=== PATIENT | female | born 1965 | race Asian ===

== ENCOUNTER 2019-10-11 12:48 | Inpatient (IN) | payer OTHER ==
[2019-10-11] MEDS ORDERED: SODIUM CHLORIDE 0.9% 1000 ML 1,000 ML ONE (13:24)
--- NOTE | 2019-10-11 13:31 | Event Note ---
ED Screening Note ED Screening Note: Patient presents for generalized weakness, fatigue, fever, shortness of breath that began a couple days ago She states he has discomfort with taking a deep breath Her only past medical history is a gastric surgery a year ago No sick contacts, no recent travel, no recent surgery, no hormone use This initial assessment/diagnostic orders/clinical plan/treatment(s) is/are subject to change based on patients health status, clinical progression and re- assessment by fellow clinical providers in the ED. Further treatment and workup at subsequent clinical providers discretion. Patient/guardian urged not to elope from the ED as their condition may be serious if not clinically assessed and managed. Initial orders include: Vitals with hypoxia and hypotension Code sepsis initiated Charge nurse Kathya notified, patient is going to room 19 for MD evaluation
[2019-10-11] MEDS ORDERED: SODIUM CHLORIDE 0.9% 1000 ML 1,000 ML IV ONE ×2 (14:07)
[2019-10-11 14:17] LABS: Basophils % (Auto) 0.2 % (0.0-1.8); Hematocrit 45.2 % (30.3-42.9); Lymphocytes % (Auto) 20.1 % (13.4-35.0); Mean Corpuscular HGB Conc 33 % (30-34); Mean Corpuscular Volume 85 fl (79-97); Monocytes # (Auto) 0.5 K/mm3 (0.0-0.8); Monocytes % (Auto) 10.2 % (0.0-7.3); Platelet Count 156 K/mm3 (140-440); Red Blood Count 5.35 M/mm3 (3.65-5.03); Red Cell Distribution Width 14.4 % (13.2-15.2)
--- NOTE | 2019-10-11 14:19 | Emergency Department Report ---
HPI - General Chief Complaint: Pain General Time Seen by Provider: 10/11/19 13:24 - HPI HPI: Room 19 Patient is a 54-year-old female present with a chief complaint of weakness. The patient states for the past week she has felt diffusely weak. Patient states she has lost approximately 10 pounds in 1 week. Patient states she does not eat or drink as much fluid as she should because she feels too weak. Patient admits to dyspnea on exertion for 8 days. Patient denies cough or fever but admits to body aches. Patient denies chest pain or abdominal pain. ED Past Medical Hx - Past Medical History Previous Medical History?: No Hx Hypertension: Yes - Surgical History Past Surgical History?: No - Family History Family history: no significant - Social History Smoking Status: Never Smoker Substance Use Type: None (Denies illicit drug use), Alcohol (Occasional) ED Review of Systems ROS: Stated complaint: BODY PAIN Other details as noted in HPI Constitutional: malaise. denies: fever Eyes: denies: eye pain ENT: denies: throat pain Respiratory: shortness of breath, SOB with exertion Cardiovascular: dyspnea on exertion. denies: chest pain Endocrine: no symptoms reported Gastrointestinal: denies: abdominal pain, nausea, vomiting, diarrhea Genitourinary: denies: dysuria Musculoskeletal: myalgia Neurological: denies: headache Physical Exam - Physical Exam Vital Signs: Vital Signs 10/11/19 13:11 Temperature 97.8 F Pulse Rate 57 L Respiratory 16 Rate Blood Pressure 85/50 [Right] O2 Sat by Pulse 90 Oximetry Physical Exam: GENERAL: The patient is well-developed well-nourished female lying on stretcher not appearing to be in acute distress. [] HEENT: Normocephalic. Atraumatic. Extraocular motions are intact. Patient has moist mucous membranes. NECK: Supple. No meningitic signs are noted. Trachea midline CHEST/LUNGS: Clear to auscultation. There is no respiratory distress noted. HEART/CARDIOVASCULAR: Regular. There is no tachycardia. There is no gallop rub or murmur. ABDOMEN: Abdomen is soft, nontender. Patient has normal bowel sounds. There is no abdominal distention. SKIN: There is no rash. There is no edema. There is no diaphoresis. NEURO: The patient is awake, alert, and oriented. The patient is cooperative. The patient has no focal neurologic deficits. The patient has normal speech. Cranial nerves II through XII grossly intact. Moves all extremities well MUSCULOSKELETAL: There is no evidence of acute injury. ED Course Vital Signs 10/11/19 13:11 Temperature 97.8 F Pulse Rate 57 L Respiratory 16 Rate Blood Pressure 85/50 [Right] O2 Sat by Pulse 90 Oximetry ED Medical Decision Making - Lab Data Result diagrams: 10/11/19 Unknown 10/11/19 Unknown Laboratory Tests 10/11/19 10/11/19 10/11/19 14:52 14:52 15:17 WBC RBC Hgb Hct MCV MCH MCHC RDW Plt Count Lymph % (Auto) [place] % (Auto) Eos % (Auto) Baso % (Auto) Lymph # Luna # Eos # Baso # Seg Neutrophils % Seg Neutrophils # ABG pH 7.402 ABG pCO2 38.9 ABG pO2 54.7 L ABG HCO3 23.7 ABG O2 Saturation 91.4 L ABG O2 Content 17.9 ABG Base Excess -0.9 ABG Hemoglobin 14.3 ABG Carboxyhemoglobin 1.5 ABG Methemoglobin 0.8 Oxyhemoglobin 89.4 L FiO2 21 Sodium Potassium Chloride Carbon Dioxide Anion Gap BUN Creatinine Estimated GFR BUN/Creatinine Ratio Glucose Lactic Acid Calcium Magnesium 3.00 H Total Bilirubin AST ALT Alkaline Phosphatase Total Creatine Kinase 288 H CK-MB (CK-2) 1.1 CK-MB (CK-2) Rel Index 0.3 Troponin T < 0.010 NT-Pro-B Natriuret Pep 8.60 Total Protein Albumin Albumin/Globulin Ratio Free T4 0.99 Urine Color Urine Turbidity Urine pH Ur Specific [place] Urine Protein Urine Glucose (UA) Urine Ketones Urine Blood Urine Nitrite Urine Bilirubin Urine Urobilinogen Ur Leukocyte Esterase Urine WBC (Auto) Urine RBC (Auto) U Epithel Cells (Auto) Urine Bacteria (Auto) Urine Mucus 10/11/19 10/11/19 10/11/19 16:33 Unknown Unknown WBC 4.9 RBC 5.35 H Hgb 15.0 H Hct 45.2 H MCV 85 MCH 28 MCHC 33 RDW 14.4 Plt Count 156 Lymph % (Auto) 20.1 Luna % (Auto) 10.2 H Eos % (Auto) 0.0 Baso % (Auto) 0.2 Lymph # 1.0 L Luna # 0.5 Eos # 0.0 Baso # 0.0 Seg Neutrophils % 69.5 Seg Neutrophils # 3.4 ABG pH ABG pCO2 ABG pO2 ABG HCO3 ABG O2 Saturation ABG O2 Content ABG Base Excess ABG Hemoglobin ABG Carboxyhemoglobin ABG Methemoglobin Oxyhemoglobin FiO2 Sodium Potassium Chloride Carbon Dioxide Anion Gap BUN Creatinine Estimated GFR BUN/Creatinine Ratio Glucose Lactic Acid 1.50 Calcium Magnesium Total Bilirubin AST ALT Alkaline Phosphatase Total Creatine Kinase CK-MB (CK-2) CK-MB (CK-2) Rel Index Troponin T NT-Pro-B Natriuret Pep Total Protein Albumin Albumin/Globulin Ratio Free T4 Urine Color [place] Urine Turbidity Cloudy Urine pH 5.0 Ur Specific [place] 1.025 Urine Protein 100 mg/dl Urine Glucose (UA) Neg Urine Ketones 20 Urine Blood Neg Urine Nitrite Neg Urine Bilirubin Neg Urine Urobilinogen < 2.0 Ur Leukocyte Esterase Mod Urine WBC (Auto) 33.0 H Urine RBC (Auto) 4.0 U Epithel Cells (Auto) 1.0 Urine Bacteria (Auto) 1+ Urine Mucus 1+ 10/11/19 10/11/19 Unknown Unknown WBC RBC Hgb Hct MCV MCH MCHC RDW Plt Count Lymph % (Auto) [place] % (Auto) Eos % (Auto) Baso % (Auto) Lymph # [place] # Eos # Baso # Seg Neutrophils % Seg Neutrophils # ABG pH ABG pCO2 ABG pO2 ABG HCO3 ABG O2 Saturation ABG O2 Content ABG Base Excess ABG Hemoglobin ABG Carboxyhemoglobin ABG Methemoglobin Oxyhemoglobin FiO2 Sodium 135 L Potassium 4.3 Chloride 95.0 L Carbon Dioxide 24 Anion Gap 20 BUN 28 H Creatinine 0.9 Estimated GFR > 60 BUN/Creatinine Ratio 31 Glucose 98 Lactic Acid 1.50 Calcium 8.7 Magnesium Total Bilirubin 0.40 AST 60 H ALT 34 Alkaline Phosphatase 51 Total Creatine Kinase CK-MB (CK-2) CK-MB (CK-2) Rel Index Troponin T NT-Pro-B Natriuret Pep Total Protein 7.6 Albumin 3.7 L Albumin/Globulin Ratio 0.9 Free T4 Urine Color Urine Turbidity Urine pH Ur Specific [place] Urine Protein Urine Glucose (UA) Urine Ketones Urine Blood Urine Nitrite Urine Bilirubin Urine Urobilinogen Ur Leukocyte Esterase Urine WBC (Auto) Urine RBC (Auto) U Epithel Cells (Auto) Urine Bacteria (Auto) Urine Mucus - Radiology Data Radiology results: report reviewed (Chest x-ray), image reviewed (Chest x-ray) interpreted by me: Chest [id number] infiltrate [facility] [address] [place] [address] XRay Report Signed Patient: ZOEY DIAZ MR#: [id number] : 1965 Acct:[id number] Age/Sex: 54 / F ADM Date: 10/11/19 Loc: ED Attending Dr: Ordering Physician: SYLVESTER NAVARRETE Date of Service: 10/11/19 Procedure(s): XR chest 1V ap Accession Number(s): [id number] cc: SYLVESTER NAVARRETE Fluoro Time In Minutes: CHEST 1 VIEW 10/11/2019 1:17 PM INDICATION / CLINICAL INFORMATION: SOB. COMPARISON: None available. FINDINGS: SUPPORT DEVICES: None. HEART / MEDIASTINUM: No significant abnormality. LUNGS / PLEURA: Patchy bilateral airspace consolidation, right greater than left characteristic for bilateral bronchopneumonia No pneumothorax. ADDITIONAL FINDINGS: No significant additional findings. IMPRESSION: 1. Bilateral bronchopneumonia. Consider Covid testing Signer Name: Ottoniel Cisneros MD Signed: 10/11/2019 2:25 PM Workstation Name: [id number] Transcribed By: TL Dictated By: Ottoniel Cisneros MD Electronically Authenticated By: Ottoniel Cisneros MD Signed Date/Time: 10/11/191424 DD/ TD/TT: - Differential Diagnosis Pneumonia, COVID-19, CHF, symptomatic anemia Critical care attestation.: If time is entered above; I have spent that time in minutes in the direct care of this critically ill patient, excluding procedure time. ED Disposition Clinical Impression: Bilateral pneumonia, Hypoxia, Suspected COVID-19 virus infection Disposition: OP ADMIT IP TO THIS HOSP Is pt being admited?: Yes Does the pt Need Aspirin: No Condition: Fair Instructions: Bacterial Pneumonia (ED) Time of Disposition: 17:46 (Hospitalist paged (Dr. Duarte))
[2019-10-11 14:28] LABS: Alanine Aminotransferase 34 units/L (7-56); Albumin 3.7 g/dL (3.9-5); BUN/Creatinine Ratio 31; Blood Urea Nitrogen 28 mg/dL (7-17); Calcium 8.7 mg/dL (8.4-10.2); Hemolysis Index 3
--- NOTE | 2019-10-11 14:29 | XRay Report ---
CHEST 1 VIEW 10/11/2019 1:17 PM INDICATION / CLINICAL INFORMATION: SOB. COMPARISON: None available. FINDINGS: SUPPORT DEVICES: None. HEART / MEDIASTINUM: No significant abnormality. LUNGS / PLEURA: Patchy bilateral airspace consolidation, right greater than left characteristic for b ilateral bronchopneumonia No pneumothorax. ADDITIONAL FINDINGS: No significant additional findings. IMPRESSION: 1. Bilateral bronchopneumonia. Consider Covid testing Signer Name: Ottoniel Cisneros MD Signed: 10/11/2019 2:25 PM Workstation Name: [id number]
[2019-10-11 15:29] LABS: ABG Base Excess -0.9 mmol/L (-2.0-3.0); ABG HCO3 23.7 mmol/L (20.0-26.0); ABG Methemoglobin 0.8 % (0.0-1.5); ABG Oxygen Saturation 91.4 % (95.0-99.0); ABG PCO2 38.9 mm Hg; ABG PH 7.402 pH Units (7.350-7.450); ABG PO2 54.7 mm Hg (80.0-90.0)
[2019-10-11 15:31] LABS: Creatine Kinase MB 1.1 ng/mL (0.0-4.0)
[2019-10-11 15:44] LABS: Free T4 (Free Thyroxine) 0.99 ng/dL (0.76-1.46)
[2019-10-11 16:07] LABS: Bacteria,Urine 1+ /HPF (Negative); Bilirubin,Urine NEG (Negative); Blood,Urine NEG (Negative); Color,Urine Amber (Yellow); Mucus,Urine 1+ /HPF; Urobilinogen,Urine < 2.0 mg/dL (<2.0)
[2019-10-11] MEDS ORDERED: AZITHROMYCIN 500 MG in SODIUM CHLORIDE 0.9% 250ML 250 ML IV ONE (17:43)
[2019-10-11] MEDS ORDERED: cefTRIAXone/NS 2 GM/100 ML 2 GM/100 ML BAG IV ONE (17:43)
--- NOTE | 2019-10-11 17:48 | History and Physical Report ---
History of Present Illness Chief complaint: I have been feeling weak for the past few days History of present illness: 54 YO Female with HTN, Obesity presents to ED for evaluation. Patient states that she has experienced generalized weakness over the past week, as well as malaise, diminished oral intake, loss of sensation of taste, loss of sensation of smell, subjective fever, shortness of breath, dyspnea on exertion, decreased exercise tolerance, body aches, as well as fatigue. EMS was notified and upon arrival the patient was found to be in distress and subsequently transported to [facility] for further care and evaluation of the aforementioned symptoms. The patient was seen and evaluated in the emergency department. Lab and imaging studies reviewed. The patient was found to have pulse oximetry of 87% with exertion which is consistent with acute hypoxemic respiratory failure, as well as a chest x-ray which revealed bilateral pneumonia. Patient was also found to have evidence of a urinary tract infection on urinalysis. Patient admitted to medical floor due to increased risk of pulmonary decompensation. Patient initiated on COVID-19 protocol. Patient denies chills, chest pain, trauma, hemoptysis, prolonged travel/immobility, unilateral leg swelling, individual/family history of DVT/PE/bleeding/blood clotting disorders, recent ill contacts, or known exposure to COVID-19. No prior admission for review. No medication listed at the time of my admission for reconciliation. Past History Past Medical History: hypertension, other (See HPI) Past Surgical History: No surgical history, Other (Reviewed) Social history: single. denies: smoking, alcohol abuse, prescription drug abuse Family history: hypertension Medications and Allergies Allergies Allergy/AdvReac Type Severity Reaction Status Date / Time No Known Allergies Allergy Unverified 10/11/19 14:11 Active Meds: Active Medications Azithromycin 500 mg/ Sodium (Chloride) 250 mls @ 250 mls/hr IV ONCE ONE; Protocol Stop: 10/11/19 18:42 Ceftriaxone Sodium (Rocephin/Ns 2 Gm/100 Ml) 2 gm in 100 mls @ 200 mls/hr IV ONCE ONE; Protocol Stop: 10/11/19 18:12 Review of Systems Constitutional: fever, fatigue, weakness, malaise, lethargy Ears, nose, mouth and throat: no ear pain, no ear discharge, no tinnitis, no decreased hearing, no nose pain Breasts: no change in shape, no swelling Cardiovascular: no chest pain, no orthopnea, no palpitations, no edema Respiratory: cough, shortness of breath, no cough with sputum, no excessive sputum Gastrointestinal: no nausea, no vomiting, no diarrhea, no constipation Genitourinary Female: no pelvic pain, no flank pain Rectal: no pain, no incontinence, no bleeding Musculoskeletal: no neck stiffness, no neck pain, no shooting arm pain, no arm numbness/tingling, no low back pain Integumentary: no rash, no pruritis, no redness, no sores, no wounds Neurological: no transient paralysis, no paralysis, no weakness, no numbness, no tingling, no syncope Psychiatric: no anxiety, no change in sleep habits, no hypersomnia Endocrine: no cold intolerance, no heat intolerance, no excessive thirst, no polydipsia, no excessive sweating Hematologic/Lymphatic: no easy bruising, no easy bleeding, no lymphadenopathy, no lymphedema Allergic/Immunologic: no urticaria, no allergic rhinitis, no anaphylaxis Exam - Constitutional Vitals: Temp Pulse Resp BP Pulse Ox 97.8 F 79 33 H 120/84 95 10/11/19 13:11 10/11/19 16:45 10/11/19 16:45 10/11/19 16:45 10/11/19 16:45 General appearance: Present: mild distress, obese - EENT Eyes: Present: PERRL ENT: hearing intact, clear oral mucosa - Neck Neck: Present: supple, normal ROM - Respiratory Respiratory effort: labored Respiratory: bilateral: diminished, rhonchi - Cardiovascular Heart Sounds: Present: S1 & S2. Absent: rub, click - Extremities Extremities: pulses symmetrical, No edema Peripheral Pulses: within normal limits - Abdominal General gastrointestinal: Present: soft, non-tender, non-distended, normal bowel sounds Female genitourinary: Present: normal - Integumentary Integumentary: Present: clear, warm, dry - Musculoskeletal Musculoskeletal: gait normal, strength equal bilaterally - Psychiatric Psychiatric: appropriate mood/affect, intact judgment & insight - Neurologic Neurologic: CNII-XII intact, moves all extremities HEART Score - HEART Score Troponin: Troponin T < 0.010 ng/mL (0.00-0.029) 10/11/19 14:52 Results - Labs CBC & Chem 7: 10/11/19 Unknown 10/11/19 Unknown Labs: Abnormal lab results 10/11/19 10/11/19 10/11/19 Range/Units 14:52 15:17 Unknown RBC (3.65-5.03) M/mm3 Hgb (10.1-14.3) gm/dl Hct (30.3-42.9) % [place] % (Auto) (0.0-7.3) % Lymph # (1.2-5.4) K/mm3 ABG pO2 54.7 L (80.0-90.0) mm Hg ABG O2 Saturation 91.4 L (95.0-99.0) % Oxyhemoglobin 89.4 L (95.0-99.0) % Sodium (137-145) mmol/L Chloride (98-107) mmol/L BUN (7-17) mg/dL Magnesium 3.00 H (1.7-2.3) mg/dL AST (5-40) units/L Total Creatine Kinase 288 H (30-135) units/L Albumin (3.9-5) g/dL Urine WBC (Auto) 33.0 H (0.0-6.0) /HPF 10/11/19 10/11/19 Range/Units Unknown Unknown RBC 5.35 H (3.65-5.03) M/mm3 Hgb 15.0 H (10.1-14.3) gm/dl Hct 45.2 H (30.3-42.9) % [place] % (Auto) 10.2 H (0.0-7.3) % Lymph # 1.0 L (1.2-5.4) K/mm3 ABG pO2 (80.0-90.0) mm Hg ABG O2 Saturation (95.0-99.0) % Oxyhemoglobin (95.0-99.0) % Sodium 135 L (137-145) mmol/L Chloride 95.0 L (98-107) mmol/L BUN 28 H (7-17) mg/dL Magnesium (1.7-2.3) mg/dL AST 60 H (5-40) units/L Total Creatine Kinase (30-135) units/L Albumin 3.7 L (3.9-5) g/dL Urine WBC (Auto) (0.0-6.0) /HPF Assessment and Plan - Patient Problems (1) Acute hypoxemic respiratory failure Current Visit: Yes Status: Acute Plan to address problem: Chest x-ray, arterial blood gas, supplemental oxygen, nebulizer therapy, pulse oximetry, noninvasive positive pressure ventilation as clinically indicated, pu lmonary toilet, prone positioning while in bed. (2) Urinary tract infection Current Visit: Yes Status: Acute Qualifiers: Encounter type: initial encounter Plan to address problem: CBC, urinalysis, IV antibiotic therapy. (3) Obesity hypoventilation syndrome Current Visit: Yes Status: Acute Plan to address problem: Supplemental oxygen, pulse oximetry, increased physical activity at discharge. Noninvasive positive pressure ventilation as clinically indicated. (4) Bilateral pneumonia Current Visit: Yes Status: Acute Plan to address problem: Chest x-ray, IV antibiotic therapy, supplemental oxygen, nebulizer therapy, pulse oximetry, noninvasive positive pressure ventilation as clinically indicated. Arterial blood gas reviewed. (5) Suspected COVID-19 virus infection Current Visit: Yes Status: Acute Plan to address problem: COVID-19 protocol: Infectious disease service consulted, IV steroid therapy, coronavirus PCR ordered in the emergency department and is pending at the time of admission, contact precautions, isolation precautions, prone positioning while in bed. (6) DVT prophylaxis Current Visit: Yes Status: Acute Plan to address problem: SCD to bilateral lower extremities, prophylactic heparin.
[2019-10-11] MEDS ORDERED: ACETAMINOPHEN 325 MG TAB PO PRN (17:50)
[2019-10-11] MEDS ORDERED: ONDANSETRON 4 MG/2 ML INJ IV PRN (17:50)
[2019-10-11] MEDS: methylPREDNISolone Sod Succinate 40 MG/1 ML INJ IV SCH (23:22)
[2019-10-11] MEDS: HEPARIN 5,000 UNIT/1 ML VIAL SUB-Q SCH (23:22)
[2019-10-12] MEDS: methylPREDNISolone Sod Succinate 40 MG/1 ML INJ IV SCH ×3 (05:00→21:14)
[2019-10-12 07:05] LABS: Basophils % (Auto) 0.1 % (0.0-1.8); Hematocrit 38.6 % (30.3-42.9); Hemoglobin 12.9 gm/dl (10.1-14.3); Lymphocytes # (Auto) 0.7 K/mm3 (1.2-5.4); Lymphocytes % (Auto) 14.2 % (13.4-35.0); Mean Corpuscular HGB Conc 34 % (30-34); Mean Corpuscular Volume 85 fl (79-97); Monocytes # (Auto) 0.2 K/mm3 (0.0-0.8); Monocytes % (Auto) 3.8 % (0.0-7.3); Platelet Count 162 K/mm3 (140-440); Red Blood Count 4.54 M/mm3 (3.65-5.03); Red Cell Distribution Width 14.5 % (13.2-15.2)
[2019-10-12 07:22] LABS: BUN/Creatinine Ratio 30; Blood Urea Nitrogen 21 mg/dL (7-17); Calcium 8.3 mg/dL (8.4-10.2); Hemolysis Index 1
[2019-10-12] MEDS ORDERED: cefTRIAXone/NS 2 GM/100 ML 2 GM/100 ML BAG IV SCH (10:00)
[2019-10-12] MEDS ORDERED: AZITHROMYCIN 500 MG in SODIUM CHLORIDE 0.9% 250ML 250 ML IV SCH (10:00)
[2019-10-12] MEDS: HEPARIN 5,000 UNIT/1 ML VIAL SUB-Q SCH ×2 (10:08→21:19)
--- NOTE | 2019-10-12 11:26 | Progress Note ---
Assessment and Plan - Patient Problems (1) Acute hypoxemic respiratory failure Current Visit: Yes Status: Acute Plan to address problem: - COVID 19 PCR pending - IV azithromycin and rocephin and decadron - ID consulted - Supportive care to maintain adequate SP02 - Prone to sleep - Activity as tolerated - Pulmonary hygiene (2) Bilateral pneumonia Current Visit: Yes Status: Acute Plan to address problem: - COVID 19 PCR sent - IV azithromycina and rocephin and decadron - ID consulted - Supportive care to maintain adequate SP02 - Prone to sleep - Activity as tolerated - Pulmonary hygiene (3) Obesity hypoventilation syndrome Current Visit: Yes Status: Acute (4) Suspected COVID-19 virus infection Current Visit: Yes Status: Acute Plan to address problem: - COVID 19 PCR pending - IV azithromycin and rocephin and decadron - ID consulted - Trend inflammatory markers - Supportive care to maintain adequate SP02 - Prone to sleep - Activity as tolerated - Pulmonary hygiene (5) Urinary tract infection Current Visit: Yes Status: Acute Qualifiers: Encounter type: initial encounter Plan to address problem: - UA mixed - Urine C/S - IV abx - Monitor CBC (6) DVT prophylaxis Current Visit: Yes Status: Acute Plan to address problem: - Heparin sub q - SCDs while in bed - Ambulation as tolerated Subjective Date of service: 10/12/19 Principal diagnosis: Covid 19 PUI Interval history: No acute events overnight reported by nursing staff or patient. The patient asks if her IVF can be continued because she cannot take much fluid d/t gastric bypass surgery in the past. Objective - Constitutional Vitals: Vital Signs - 12hr 10/11/19 10/12/19 10/12/19 23:45 00:32 03:54 Temperature 101.4 F H 98.7 F Pulse Rate 66 Respiratory 20 Rate Blood Pressure 126/81 120/77 O2 Sat by Pulse Oximetry 10/12/19 05:35 Temperature 98.6 F Pulse Rate 73 Respiratory 20 Rate Blood Pressure 127/81 O2 Sat by Pulse 97 Oximetry General appearance: Present: no acute distress - EENT Eyes: PERRL, EOM intact ENT: hearing intact - Neck Neck: normal ROM - Respiratory Respiratory effort: normal - Cardiovascular Rhythm: regular Extremities: pulses intact, pulses symmetrical, No edema - Gastrointestinal General gastrointestinal: Present: soft, non-tender - Integumentary Integumentary: clear, warm, dry - Musculoskeletal Musculoskeletal: strength equal bilaterally - Neurologic Neurologic: CNII-XII intact, moves all extremities - Psychiatric Psychiatric: appropriate mood/affect - Allied health notes Allied health notes reviewed: nursing - Labs CBC & Chem 7: 10/12/19 05:16 10/12/19 05:16 Labs: Abnormal lab results 10/11/19 10/11/19 10/11/19 Range/Units 14:52 15:17 18:17 RBC (3.65-5.03) M/mm3 Hgb (10.1-14.3) gm/dl Hct (30.3-42.9) % [place] % (Auto) (0.0-7.3) % Lymph # (1.2-5.4) K/mm3 Seg Neutrophils % (40.0-70.0) % D-Dimer 438.29 H (0-234) ng/mlDDU ABG pO2 54.7 L (80.0-90.0) mm Hg ABG O2 Saturation 91.4 L (95.0-99.0) % Oxyhemoglobin 89.4 L (95.0-99.0) % Sodium (137-145) mmol/L Potassium (3.6-5.0) mmol/L Chloride (98-107) mmol/L BUN (7-17) mg/dL Glucose (65-100) mg/dL Calcium (8.4-10.2) mg/dL Magnesium 3.00 H (1.7-2.3) mg/dL Ferritin (13.0-400.0) ng/mL AST (5-40) units/L Lactate Dehydrogenase (91-180) units/L Total Creatine Kinase 288 H (30-135) units/L Albumin (3.9-5) g/dL Urine WBC (Auto) (0.0-6.0) /HPF 10/11/19 10/11/19 10/11/19 Range/Units 18:17 18:17 Unknown RBC (3.65-5.03) M/mm3 Hgb (10.1-14.3) gm/dl Hct (30.3-42.9) % [place] % (Auto) (0.0-7.3) % Lymph # (1.2-5.4) K/mm3 Seg Neutrophils % (40.0-70.0) % D-Dimer (0-234) ng/mlDDU ABG pO2 (80.0-90.0) mm Hg ABG O2 Saturation (95.0-99.0) % Oxyhemoglobin (95.0-99.0) % Sodium (137-145) mmol/L Potassium (3.6-5.0) mmol/L Chloride (98-107) mmol/L BUN (7-17) mg/dL Glucose (65-100) mg/dL Calcium (8.4-10.2) mg/dL Magnesium (1.7-2.3) mg/dL Ferritin 719.2 H (13.0-400.0) ng/mL AST (5-40) units/L Lactate Dehydrogenase 399 H (91-180) units/L Total Creatine Kinase (30-135) units/L Albumin (3.9-5) g/dL Urine WBC (Auto) 33.0 H (0.0-6.0) /HPF 10/11/19 10/11/19 10/12/19 Range/Units Unknown Unknown 05:16 RBC 5.35 H (3.65-5.03) M/mm3 Hgb 15.0 H (10.1-14.3) gm/dl Hct 45.2 H (30.3-42.9) % [place] % (Auto) 10.2 H (0.0-7.3) % Lymph # 1.0 L 0.7 L (1.2-5.4) K/mm3 Seg Neutrophils % 81.9 H (40.0-70.0) % D-Dimer (0-234) ng/mlDDU ABG pO2 (80.0-90.0) mm Hg ABG O2 Saturation (95.0-99.0) % Oxyhemoglobin (95.0-99.0) % Sodium 135 L (137-145) mmol/L Potassium (3.6-5.0) mmol/L Chloride 95.0 L (98-107) mmol/L BUN 28 H (7-17) mg/dL Glucose (65-100) mg/dL Calcium (8.4-10.2) mg/dL Magnesium (1.7-2.3) mg/dL Ferritin (13.0-400.0) ng/mL AST 60 H (5-40) units/L Lactate Dehydrogenase (91-180) units/L Total Creatine Kinase (30-135) units/L Albumin 3.7 L (3.9-5) g/dL Urine WBC (Auto) (0.0-6.0) /HPF 10/12/19 Range/Units 05:16 RBC (3.65-5.03) M/mm3 Hgb (10.1-14.3) gm/dl Hct (30.3-42.9) % [place] % (Auto) (0.0-7.3) % Lymph # (1.2-5.4) K/mm3 Seg Neutrophils % (40.0-70.0) % D-Dimer (0-234) ng/mlDDU ABG pO2 (80.0-90.0) mm Hg ABG O2 Saturation (95.0-99.0) % Oxyhemoglobin (95.0-99.0) % Sodium (137-145) mmol/L Potassium 5.1 H (3.6-5.0) mmol/L Chloride (98-107) mmol/L BUN 21 H (7-17) mg/dL Glucose 102 H (65-100) mg/dL Calcium 8.3 L (8.4-10.2) mg/dL Magnesium (1.7-2.3) mg/dL Ferritin (13.0-400.0) ng/mL AST (5-40) units/L Lactate Dehydrogenase (91-180) units/L Total Creatine Kinase (30-135) units/L Albumin (3.9-5) g/dL Urine WBC (Auto) (0.0-6.0) /HPF HEART Score - HEART Score Troponin: Troponin T < 0.010 ng/mL (0.00-0.029) 10/11/19 14:52
--- NOTE | 2019-10-12 12:21 | Progress Note ---
Assessment and Plan - Patient Problems (1) Acute hypoxemic respiratory failure Current Visit: Yes Status: Acute Plan to address problem: Chest x-ray, supplemental oxygen, nebulizer therapy, pulse oximetry, noninvasive positive pressure ventilation as clinically indicated, pulmonary toilet, prone positioning while in bed. (2) Urinary tract infection Current Visit: Yes Status: Acute Qualifiers: Encounter type: initial encounter Plan to address problem: CBC, urinalysis, IV antibiotic therapy. (3) Obesity hypoventilation syndrome Current Visit: Yes Status: Acute Plan to address problem: Supplemental oxygen, pulse oximetry, increased physical activity at discharge. Noninvasive positive pressure ventilation as clinically indicated. (4) Bilateral pneumonia Current Visit: Yes Status: Acute Plan to address problem: Chest x-ray, IV antibiotic therapy, supplemental oxygen, nebulizer therapy, pulse oximetry, noninvasive positive pressure ventilation as clinically indicated. Arterial blood gas reviewed. (5) Suspected COVID-19 virus infection Current Visit: Yes Status: Acute Plan to address problem: COVID-19 protocol: Infectious disease service consulted, IV steroid therapy, coronavirus PCR ordered and is pending at the time of admission, contact precautions, isolation precautions, prone positioning while in bed. (6) DVT prophylaxis Current Visit: Yes Status: Acute Plan to address problem: SCD to bilateral lower extremities, prophylactic heparin. History Interval history: 54 YO Female HD #2 with COVID 19 PUI, Pneumonia, Acute Respiratory Failure, Obesity Hypoventilation Syndrome, GERD, UTI. Patient is awaiting COVID-19 PCR. Patient states that her breathing is mildly improved today. However patient does continue to acknowledge shortness of breath at rest and with exertion. No reported nursing events overnight. Hospitalist Physical - Constitutional Vitals: Temp Pulse Resp BP Pulse Ox 98.6 F 73 20 127/81 97 10/12/19 05:35 10/12/19 05:35 10/12/19 05:35 10/12/19 05:35 10/12/19 05:35 General appearance: Present: mild distress, obese - EENT Eyes: Present: PERRL, EOM intact ENT: hearing intact - Neck Neck: Present: supple - Respiratory Respiratory effort: labored Respiratory: bilateral: diminished - Cardiovascular Rhythm: regular Heart Sounds: Present: S1 & S2 - Extremities Extremities: no ischemia Peripheral Pulses: within normal limits - Abdominal General gastrointestinal: soft, non-tender, non-distended - Integumentary Integumentary: Present: clear, dry - Psychiatric Psychiatric: appropriate mood/affect, cooperative - Neurologic Neurologic: CNII-XII intact HEART Score - HEART Score Troponin: Troponin T < 0.010 ng/mL (0.00-0.029) 10/11/19 14:52 Results - Labs CBC & Chem 7: 10/12/19 05:16 10/12/19 05:16 Labs: Laboratory Last Values WBC 5.1 K/mm3 (4.5-11.0) 10/12/19 05:16 RBC 4.54 M/mm3 (3.65-5.03) 10/12/19 05:16 Hgb 12.9 gm/dl (10.1-14.3) 10/12/19 05:16 Hct 38.6 % (30.3-42.9) D 10/12/19 05:16 MCV 85 fl (79-97) 10/12/19 05:16 MCH 29 pg (28-32) 10/12/19 05:16 MCHC 34 % (30-34) 10/12/19 05:16 RDW 14.5 % (13.2-15.2) 10/12/19 05:16 Plt Count 162 K/mm3 (140-440) 10/12/19 05:16 Lymph % (Auto) 14.2 % (13.4-35.0) 10/12/19 05:16 [place] % (Auto) 3.8 % (0.0-7.3) 10/12/19 05:16 Eos % (Auto) 0.0 % (0.0-4.3) 10/12/19 05:16 Baso % (Auto) 0.1 % (0.0-1.8) 10/12/19 05:16 Lymph # 0.7 K/mm3 (1.2-5.4) L 10/12/19 05:16 [place] # 0.2 K/mm3 (0.0-0.8) 10/12/19 05:16 Eos # 0.0 K/mm3 (0.0-0.4) 10/12/19 05:16 Baso # 0.0 K/mm3 (0.0-0.1) 10/12/19 05:16 Seg Neutrophils % 81.9 % (40.0-70.0) H 10/12/19 05:16 Seg Neutrophils # 4.2 K/mm3 (1.8-7.7) 10/12/19 05:16 D-Dimer 438.29 ng/mlDDU (0-234) H 10/11/19 18:17 ABG pH 7.402 pH Units (7.350-7.450) 10/11/19 15:17 ABG pCO2 38.9 mm Hg 10/11/19 15:17 ABG pO2 54.7 mm Hg (80.0-90.0) L 10/11/19 15:17 ABG HCO3 23.7 mmol/L (20.0-26.0) 10/11/19 15:17 ABG O2 Saturation 91.4 % (95.0-99.0) L 10/11/19 15:17 ABG O2 Content 17.9 (0.0-44) 10/11/19 15:17 ABG Base Excess -0.9 mmol/L (-2.0-3.0) 10/11/19 15:17 ABG Hemoglobin 14.3 gm/dl (12.0-16.0) 10/11/19 15:17 ABG Carboxyhemoglobin 1.5 % (0.0-5.0) 10/11/19 15:17 ABG Methemoglobin 0.8 % (0.0-1.5) 10/11/19 15:17 Oxyhemoglobin 89.4 % (95.0-99.0) L 10/11/19 15:17 FiO2 21 % 10/11/19 15:17 Sodium 139 mmol/L (137-145) 10/12/19 05:16 Potassium 5.1 mmol/L (3.6-5.0) H 10/12/19 05:16 Chloride 102.9 mmol/L (98-107) 10/12/19 05:16 Carbon Dioxide 22 mmol/L (22-30) 10/12/19 05:16 Anion Gap 19 mmol/L 10/12/19 05:16 BUN 21 mg/dL (7-17) H 10/12/19 05:16 Creatinine 0.7 mg/dL (0.7-1.2) 10/12/19 05:16 Estimated GFR > 60 ml/min 10/12/19 05:16 BUN/Creatinine Ratio 30 % 10/12/19 05:16 Glucose 102 mg/dL (65-100) H 10/12/19 05:16 Lactic Acid 1.50 mmol/L (0.7-2.0) 10/11/19 Unknown Calcium 8.3 mg/dL (8.4-10.2) L 10/12/19 05:16 Magnesium 3.00 mg/dL (1.7-2.3) H 10/11/19 14:52 Ferritin 719.2 ng/mL (13.0-400.0) H 10/11/19 18:17 Total Bilirubin 0.40 mg/dL (0.1-1.2) 10/11/19 Unknown AST 60 units/L (5-40) H 10/11/19 Unknown ALT 34 units/L (7-56) 10/11/19 Unknown Alkaline Phosphatase 51 units/L (35-129) 10/11/19 Unknown Lactate Dehydrogenase 399 units/L (91-180) H 10/11/19 18:17 Total Creatine Kinase 288 units/L (30-135) H 10/11/19 14:52 CK-MB (CK-2) 1.1 ng/mL (0.0-4.0) 10/11/19 14:52 CK-MB (CK-2) Rel Index 0.3 (0-4) 10/11/19 14:52 Troponin T < 0.010 ng/mL (0.00-0.029) 10/11/19 14:52 NT-Pro-B Natriuret Pep 8.60 pg/mL (0-900) 10/11/19 14:52 Total Protein 7.6 g/dL (6.3-8.2) 10/11/19 Unknown Albumin 3.7 g/dL (3.9-5) L 10/11/19 Unknown Albumin/Globulin Ratio 0.9 % 10/11/19 Unknown Procalcitonin 0.14 ng/mL (<0.15) 10/11/19 18:17 TSH 0.923 mlU/mL (0.270-4.200) 10/11/19 14:52 Free T4 0.99 ng/dL (0.76-1.46) 10/11/19 14:52 Urine Color [place] (Yellow) 10/11/19 Unknown Urine Turbidity Cloudy (Clear) 10/11/19 Unknown Urine pH 5.0 (5.0-7.0) 10/11/19 Unknown Ur Specific [place] 1.025 (1.003-1.030) 10/11/19 Unknown Urine Protein 100 mg/dl mg/dL (Negative) 10/11/19 Unknown Urine Glucose (UA) Neg mg/dL (Negative) 10/11/19 Unknown Urine Ketones 20 mg/dL (Negative) 10/11/19 Unknown Urine Blood Neg (Negative) 10/11/19 Unknown Urine Nitrite Neg (Negative) 10/11/19 Unknown Urine Bilirubin Neg (Negative) 10/11/19 Unknown Urine Urobilinogen < 2.0 mg/dL (<2.0) 10/11/19 Unknown Ur Leukocyte Esterase Mod (Negative) 10/11/19 Unknown Urine WBC (Auto) 33.0 /HPF (0.0-6.0) H 10/11/19 Unknown Urine RBC (Auto) 4.0 /HPF (0.0-6.0) 10/11/19 Unknown U Epithel Cells (Auto) 1.0 /HPF (0-13.0) 10/11/19 Unknown Urine Bacteria (Auto) 1+ /HPF (Negative) 10/11/19 Unknown Urine Mucus 1+ /HPF 10/11/19 Unknown Microbiology: Microbiology 10/11/19 Unknown Peripheral/Venous Blood Culture - Preliminary Culture in Progress 10/11/19 Unknown Peripheral/Venous Blood Culture - Preliminary Culture in Progress [place]/IV: Voiding Method Toilet IV Catheter Type [Right INT / Saline Lock Antecubital] Active Medications - Current Medications Current Medications: Generic Name Dose Route Start Last Admin Trade Name Freq PRN Reason Stop Dose Admin Acetaminophen 650 mg 10/11/19 17:50 10/11/19 23:22 Tylenol PO 650 mg Q4H PRN Administration Pain MILD(1-3)/Fever >100.5/HOLT Heparin Sodium (Porcine) 5,000 unit 10/11/19 22:00 10/12/19 10:08 Heparin SUB-Q 5,000 unit Q12HR SRINIVAS Administration Ceftriaxone Sodium 2 gm in 100 mls @ 200 mls/hr 10/12/19 10:00 10/12/19 10:08 Rocephin/Ns 2 Gm/100 Ml IV 200 mls/hr Q24HR SRINIVAS Administration Protocol Azithromycin 500 mg/ Sodium 250 mls @ 250 mls/hr 10/12/19 10:00 10/12/19 11:40 Chloride IV 250 mls/hr Q24HR SRINIVAS Administration Protocol Methylprednisolone Sodium Succinate 40 mg 10/11/19 22:00 10/12/19 05:00 Solu-Medrol IV 40 mg Q8HR SRINIVAS Administration Ondansetron HCl 4 mg 10/11/19 17:50 10/11/19 23:21 Zofran IV 4 mg Q8H PRN Administration Nausea And Vomiting Sodium Chloride 10 ml 10/11/19 22:00 10/12/19 10:08 Sodium Chloride Flush Syringe 10 Ml IV 10 ml BID SRINIVAS Administration Sodium Chloride 10 ml 10/11/19 17:50 Sodium Chloride Flush Syringe 10 Ml IV PRN PRN LINE FLUSH Nutrition/Malnutrition Assess - Dietary Evaluation Nutrition/Malnutrition Findings: Nutrition Notes Start: 10/12/19 08:09 Freq: Status: Active Protocol: Document 10/12/19 08:09 LP (Rec: 10/12/19 08:12 LP [id number]) Nutrition Notes 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 Pt did not answer phone. Nutrition Intervention Follow-Up By: 10/14/19 Additional Comments Follow for assessment
[2019-10-12] MEDS ORDERED: tiZANidine TAB 4 MG TAB PO PRN (12:28)
[2019-10-12] MEDS: PANTOPRAZOLE 20 MG TAB PO SCH (12:41)
[2019-10-12] MEDS ORDERED: REMDESIVIR 200 MG in SODIUM CHLORIDE 0.9% 250ML 250 ML IV ONE (15:23)
--- NOTE | 2019-10-12 15:23 | Consultation ---
History of Present Illness - Reason for Consult Consult date: 10/12/19 COVID Requesting physician: OMAR RIGGS - History of Present Illness The patient is a 54-year-old female with hypertension, obesity who came to the emergency room with complaints of fever, generalized weakness, loss of sensation of taste and smell. She was noted to have pulse oximetry of 87% on exertion, chest x-ray showed bilateral pneumonia. COVID-19 PCR was positive. She has b een hospitalized. Infectious diseases was consulted for additional evaluation. She was requiring 4 L oxygen by nasal cannula on admission. Fever of 101.4 F Review of Systems: reviewed in the chart, unable to obtain directly due to PPE shortage and preservation Past History Past Medical History: hypertension, other (See HPI) Past Surgical History: No surgical history, Other (Reviewed) Social history: single. denies: smoking, alcohol abuse, prescription drug abuse Family history: hypertension Medications and Allergies Allergies Allergy/AdvReac Type Severity Reaction Status Date / Time No Known Allergies Allergy Unverified 10/11/19 14:11 Home Medications Medication Instructions Recorded Confirmed Last Taken Type Amlodipine Besylate/Benazepril 1 tab PO DAILY 10/11/19 10/11/19 Unknown History [Amlodipine-Benazepril 5-20 mg] Omeprazole 1 tab PO DAILY 10/11/19 10/11/19 Unknown History tiZANidine [Zanaflex 4mg TAB] 1 tab PO DAILY PRN 10/11/19 10/11/19 Unknown History Active Meds: Active Medications Acetaminophen (Tylenol) 650 mg PO Q4H PRN PRN Reason: Pain MILD(1-3)/Fever >100.5/HOLT Last Admin: 10/11/19 23:22 Dose: 650 mg Documented by: Amlodipine Besylate (Amlodipine) 5 mg PO QDAY SRINIVAS Heparin Sodium (Porcine) (Heparin) 5,000 unit SUB-Q Q12HR SRINIVAS Last Admin: 10/12/19 10:08 Dose: 5,000 unit Documented by: Ceftriaxone Sodium (Rocephin/Ns 2 Gm/100 Ml) 2 gm in 100 mls @ 200 mls/hr IV Q24HR SRINIVAS; Protocol Last Admin: 10/12/19 10:08 Dose: 200 mls/hr Documented by: Azithromycin 500 mg/ Sodium (Chloride) 250 mls @ 250 mls/hr IV Q24HR SRINIVAS; Protocol Last Admin: 10/12/19 11:40 Dose: 250 mls/hr Documented by: Lisinopril (Zestril) 20 mg PO QDAY [facility] Methylprednisolone Sodium Succinate (Solu-Medrol) 40 mg IV Q8HR [facility] Last Admin: 10/12/19 15:06 Dose: 40 mg Documented by: Ondansetron HCl (Zofran) 4 mg IV Q8H PRN PRN Reason: Nausea And Vomiting Last Admin: 10/11/19 23:21 Dose: 4 mg Documented by: Pantoprazole Sodium (Protonix) 20 mg PO QDAY [facility] Last Admin: 10/12/19 12:41 Dose: 20 mg Documented by: Sodium Chloride (Sodium Chloride Flush Syringe 10 Ml) 10 ml IV BID [facility] Last Admin: 10/12/19 10:08 Dose: 10 ml Documented by: Sodium Chloride (Sodium Chloride Flush Syringe 10 Ml) 10 ml IV PRN PRN PRN Reason: LINE FLUSH Tizanidine HCl (Zanaflex) 4 mg PO DAILY PRN PRN Reason: Sleep Physical Examination - Physical Exam Narrative exam: Physical Exam (reviewed in chart due to PPE conservation) Constitutional: limited due to PPE conservation strategy Head, Ears, Nose: limited due to PPE conservation strategy Eyes: limited due to PPE conservation strategy Neck: limited due to PPE conservation strategy Oral: limited due to PPE conservation strategy Cardiovascular: limited due to PPE conservation strategy Respiratory: limited due to PPE conservation strategy GI: limited due to PPE conservation strategy Musculoskeletal: limited due to PPE conservation strategy Skin: limited due to PPE conservation strategy Hem/Lymphatic: limited due to PPE conservation strategy Psych: limited due to PPE conservation strategy Neurological: limited due to PPE conservation strategy - Constitutional Vitals: Vital Signs Temp Pulse Resp BP Pulse Ox 98.4 F 71 22 130/86 96 10/12/19 11:43 10/12/19 11:43 10/12/19 11:43 10/12/19 11:43 10/12/19 11:43 Temperature -Last 24 Hours Temperature 98.4 F Temperature 98.6 F Temperature 98.7 F Temperature 101.4 F Temperature 101.0 F Results - Labs CBC & Chem 7: 10/12/19 05:16 10/12/19 05:16 Labs: Abnormal lab results 10/11/19 10/11/19 10/11/19 Range/Units 14:52 15:17 18:17 Lymph # (1.2-5.4) K/mm3 Seg Neutrophils % (40.0-70.0) % D-Dimer 438.29 H (0-234) ng/mlDDU ABG pO2 54.7 L (80.0-90.0) mm Hg ABG O2 Saturation 91.4 L (95.0-99.0) % Oxyhemoglobin 89.4 L (95.0-99.0) % Potassium (3.6-5.0) mmol/L BUN (7-17) mg/dL Glucose (65-100) mg/dL Calcium (8.4-10.2) mg/dL Magnesium 3.00 H (1.7-2.3) mg/dL Ferritin (13.0-400.0) ng/mL Lactate Dehydrogenase (91-180) units/L Total Creatine Kinase 288 H (30-135) units/L Urine WBC (Auto) (0.0-6.0) /HPF Coronavirus (PCR) (Negative) 10/11/19 10/11/19 10/11/19 Range/Units 18:17 18:17 Unknown Lymph # (1.2-5.4) K/mm3 Seg Neutrophils % (40.0-70.0) % D-Dimer (0-234) ng/mlDDU ABG pO2 (80.0-90.0) mm Hg ABG O2 Saturation (95.0-99.0) % Oxyhemoglobin (95.0-99.0) % Potassium (3.6-5.0) mmol/L BUN (7-17) mg/dL Glucose (65-100) mg/dL Calcium (8.4-10.2) mg/dL Magnesium (1.7-2.3) mg/dL Ferritin 719.2 H (13.0-400.0) ng/mL Lactate Dehydrogenase 399 H (91-180) units/L Total Creatine Kinase (30-135) units/L Urine WBC (Auto) 33.0 H (0.0-6.0) /HPF Coronavirus (PCR) (Negative) 10/12/19 10/12/19 10/12/19 Range/Units 05:16 05:16 Unknown Lymph # 0.7 L (1.2-5.4) K/mm3 Seg Neutrophils % 81.9 H (40.0-70.0) % D-Dimer (0-234) ng/mlDDU ABG pO2 (80.0-90.0) mm Hg ABG O2 Saturation (95.0-99.0) % Oxyhemoglobin (95.0-99.0) % Potassium 5.1 H (3.6-5.0) mmol/L BUN 21 H (7-17) mg/dL Glucose 102 H (65-100) mg/dL Calcium 8.3 L (8.4-10.2) mg/dL Magnesium (1.7-2.3) mg/dL Ferritin (13.0-400.0) ng/mL Lactate Dehydrogenase (91-180) units/L Total Creatine Kinase (30-135) units/L Urine WBC (Auto) (0.0-6.0) /HPF Coronavirus (PCR) Positive A (Negative) Assessment and Plan Cultures: Coronavirus PCR: Positive A/P: 54-year-old female with hypertension, obesity: Bilateral pneumonia: Secondary to COVID. D-dimer 438, ferritin 719, LDH 399, procalcitonin 0.14. Chest x-ray showed bilateral bronchopneumonia. Acute hypoxic respiratory failure: on oxygen Recs: already on solumedrol per IMS start Remdesivir for 5 days, monitor LFTs prophylactic anticoagulation based on d-dimer: LMWH 0.5 mg/kg q12 hrs trend ferritin, LDH, d-dimer, CRP every 2-3 days for risk stratification and to assess disease progression Gonzales Swan MD, FACP [facility] ([facility] C: [phone] O: [phone] F: [phone]
[2019-10-12] MEDS: SODIUM CHLORIDE 0.9% 50 ML IVPB IV SCH (18:20)
[2019-10-13] MEDS: methylPREDNISolone Sod Succinate 40 MG/1 ML INJ IV SCH ×3 (05:05→21:15)
[2019-10-13] MEDS: HEPARIN 5,000 UNIT/1 ML VIAL SUB-Q SCH ×2 (09:51→21:15)
[2019-10-13] MEDS: PANTOPRAZOLE 20 MG TAB PO SCH (09:51)
[2019-10-13] MEDS: amLODIPine 5 MG TAB PO SCH (09:51)
[2019-10-13] MEDS: LISINOPRIL 20 MG TAB PO SCH (09:51)
[2019-10-13] MEDS ORDERED: BENAZEPRIL PO SCH (10:00)
[2019-10-13] MEDS ORDERED: AMLODIPINE BESYLATE PO SCH (10:00)
[2019-10-13] MEDS ORDERED: [UNRECOGNIZED DRUG - OTHER] PO SCH (10:00)
--- NOTE | 2019-10-13 10:18 | Progress Note ---
Assessment and Plan - Patient Problems (1) Pneumonia due to COVID-19 virus Current Visit: Yes Status: Acute Plan to address problem: - ID following - Started on Remdisivir - Continue supportive care - Trend inflammatory markers - PRN antitussive - Prone to sleep - Supplemental oxygen as needed - Pulmanory hygiene - OOB TID and prn - Contact and Droplet isolation (2) Acute hypoxemic respiratory failure Current Visit: Yes Status: Acute Plan to address problem: - 2/2 of COVID PNA - Supplementory oxygenation as needed - Prone to sleep - Pulmanory hygenie (3) Obesity hypoventilation syndrome Current Visit: Yes Status: Acute Plan to address problem: - 2/2 of obesity - S/P gastric bypass surgery - Supplemental oxygenation as needed (4) HTN (hypertension) Current Visit: Yes Status: Acute Plan to address problem: - Continue home lisnopril and amlodipine - Monitor BP per protocol (5) Urinary tract infection Current Visit: Yes Status: Acute Qualifiers: Encounter type: initial encounter Plan to address problem: - monitor CBC - IV abx discontinued (6) DVT prophylaxis Current Visit: Yes Status: Acute Plan to address problem: - SCDs while in bed - Patient is ambulatory - Subq heparin History Interval history: This is 54 year old female HD# 2 with morbid obesity s/p gastric bypass surgery 2019, HTN, OHS and COVID 19 PNA. She is on steroids for her PNA and was started on Remdisivir on 10/11. Today she complains of cough and need for IV hydration given her decreased intake r/t gastric bypass. Education done re hydration. She states she understands that there is no need for MIVF at this time. Hospitalist Physical - Constitutional Vitals: Temp Pulse Resp BP Pulse Ox 98.6 F 68 20 131/90 95 10/12/19 22:06 10/12/19 22:00 10/12/19 22:06 10/12/19 22:06 10/13/19 10:00 General appearance: Present: no acute distress, obese - EENT Eyes: Present: PERRL, EOM intact ENT: hearing intact - Neck Neck: Present: normal ROM - Respiratory Respiratory effort: normal - Cardiovascular Rhythm: regular - Extremities Extremities: no ischemia, pulses intact, pulses symmetrical, No edema Peripheral Pulses: within normal limits - Abdominal General gastrointestinal: soft, non-tender - Integumentary Integumentary: Present: clear, warm, dry - Psychiatric Psychiatric: appropriate mood/affect, cooperative - Neurologic Neurologic: no focal deficits, moves all extremities - Allied Health Allied health notes reviewed: nursing HEART Score - HEART Score Troponin: Troponin T < 0.010 ng/mL (0.00-0.029) 10/11/19 14:52 Results - Labs CBC & Chem 7: 10/12/19 05:16 10/12/19 05:16 Labs: Laboratory Last Values WBC 5.1 K/mm3 (4.5-11.0) 10/12/19 05:16 RBC 4.54 M/mm3 (3.65-5.03) 10/12/19 05:16 Hgb 12.9 gm/dl (10.1-14.3) 10/12/19 05:16 Hct 38.6 % (30.3-42.9) D 10/12/19 05:16 MCV 85 fl (79-97) 10/12/19 05:16 MCH 29 pg (28-32) 10/12/19 05:16 MCHC 34 % (30-34) 10/12/19 05:16 RDW 14.5 % (13.2-15.2) 10/12/19 05:16 Plt Count 162 K/mm3 (140-440) 10/12/19 05:16 Lymph % (Auto) 14.2 % (13.4-35.0) 10/12/19 05:16 [place] % (Auto) 3.8 % (0.0-7.3) 10/12/19 05:16 Eos % (Auto) 0.0 % (0.0-4.3) 10/12/19 05:16 Baso % (Auto) 0.1 % (0.0-1.8) 10/12/19 05:16 Lymph # 0.7 K/mm3 (1.2-5.4) L 10/12/19 05:16 [place] # 0.2 K/mm3 (0.0-0.8) 10/12/19 05:16 Eos # 0.0 K/mm3 (0.0-0.4) 10/12/19 05:16 Baso # 0.0 K/mm3 (0.0-0.1) 10/12/19 05:16 Seg Neutrophils % 81.9 % (40.0-70.0) H 10/12/19 05:16 Seg Neutrophils # 4.2 K/mm3 (1.8-7.7) 10/12/19 05:16 D-Dimer 438.29 ng/mlDDU (0-234) H 10/11/19 18:17 ABG pH 7.402 pH Units (7.350-7.450) 10/11/19 15:17 ABG pCO2 38.9 mm Hg 10/11/19 15:17 ABG pO2 54.7 mm Hg (80.0-90.0) L 10/11/19 15:17 ABG HCO3 23.7 mmol/L (20.0-26.0) 10/11/19 15:17 ABG O2 Saturation 91.4 % (95.0-99.0) L 10/11/19 15:17 ABG O2 Content 17.9 (0.0-44) 10/11/19 15:17 ABG Base Excess -0.9 mmol/L (-2.0-3.0) 10/11/19 15:17 ABG Hemoglobin 14.3 gm/dl (12.0-16.0) 10/11/19 15:17 ABG Carboxyhemoglobin 1.5 % (0.0-5.0) 10/11/19 15:17 ABG Methemoglobin 0.8 % (0.0-1.5) 10/11/19 15:17 Oxyhemoglobin 89.4 % (95.0-99.0) L 10/11/19 15:17 FiO2 21 % 10/11/19 15:17 Sodium 139 mmol/L (137-145) 10/12/19 05:16 Potassium 5.1 mmol/L (3.6-5.0) H 10/12/19 05:16 Chloride 102.9 mmol/L (98-107) 10/12/19 05:16 Carbon Dioxide 22 mmol/L (22-30) 10/12/19 05:16 Anion Gap 19 mmol/L 10/12/19 05:16 BUN 21 mg/dL (7-17) H 10/12/19 05:16 Creatinine 0.7 mg/dL (0.7-1.2) 10/12/19 05:16 Estimated GFR > 60 ml/min 10/12/19 05:16 BUN/Creatinine Ratio 30 % 10/12/19 05:16 Glucose 102 mg/dL (65-100) H 10/12/19 05:16 Lactic Acid 1.50 mmol/L (0.7-2.0) 10/11/19 Unknown Calcium 8.3 mg/dL (8.4-10.2) L 10/12/19 05:16 Magnesium 3.00 mg/dL (1.7-2.3) H 10/11/19 14:52 Ferritin 719.2 ng/mL (13.0-400.0) H 10/11/19 18:17 Total Bilirubin 0.40 mg/dL (0.1-1.2) 10/11/19 Unknown AST 60 units/L (5-40) H 10/11/19 Unknown ALT 34 units/L (7-56) 10/11/19 Unknown Alkaline Phosphatase 51 units/L (35-129) 10/11/19 Unknown Lactate Dehydrogenase 399 units/L (91-180) H 10/11/19 18:17 Total Creatine Kinase 288 units/L (30-135) H 10/11/19 14:52 CK-MB (CK-2) 1.1 ng/mL (0.0-4.0) 10/11/19 14:52 CK-MB (CK-2) Rel Index 0.3 (0-4) 10/11/19 14:52 Troponin T < 0.010 ng/mL (0.00-0.029) 10/11/19 14:52 NT-Pro-B Natriuret Pep 8.60 pg/mL (0-900) 10/11/19 14:52 Total Protein 7.6 g/dL (6.3-8.2) 10/11/19 Unknown Albumin 3.7 g/dL (3.9-5) L 10/11/19 Unknown Albumin/Globulin Ratio 0.9 % 10/11/19 Unknown Procalcitonin 0.14 ng/mL (<0.15) 10/11/19 18:17 TSH 0.923 mlU/mL (0.270-4.200) 10/11/19 14:52 Free T4 0.99 ng/dL (0.76-1.46) 10/11/19 14:52 Urine Color [place] (Yellow) 10/11/19 Unknown Urine Turbidity Cloudy (Clear) 10/11/19 Unknown Urine pH 5.0 (5.0-7.0) 10/11/19 Unknown Ur Specific [place] 1.025 (1.003-1.030) 10/11/19 Unknown Urine Protein 100 mg/dl mg/dL (Negative) 10/11/19 Unknown Urine Glucose (UA) Neg mg/dL (Negative) 10/11/19 Unknown Urine Ketones 20 mg/dL (Negative) 10/11/19 Unknown Urine Blood Neg (Negative) 10/11/19 Unknown Urine Nitrite Neg (Negative) 10/11/19 Unknown Urine Bilirubin Neg (Negative) 10/11/19 Unknown Urine Urobilinogen < 2.0 mg/dL (<2.0) 10/11/19 Unknown Ur Leukocyte Esterase Mod (Negative) 10/11/19 Unknown Urine WBC (Auto) 33.0 /HPF (0.0-6.0) H 10/11/19 Unknown Urine RBC (Auto) 4.0 /HPF (0.0-6.0) 10/11/19 Unknown U Epithel Cells (Auto) 1.0 /HPF (0-13.0) 10/11/19 Unknown Urine Bacteria (Auto) 1+ /HPF (Negative) 10/11/19 Unknown Urine Mucus 1+ /HPF 10/11/19 Unknown Nasal Screen MRSA (PCR) Negative (Negative) 10/12/19 00:01 Coronavirus (PCR) Positive (Negative) A 10/12/19 Unknown Microbiology: Microbiology 10/11/19 Unknown Peripheral/Venous Blood Culture - Preliminary NO GROWTH AFTER 24 HOURS 10/11/19 Unknown Peripheral/Venous Blood Culture - Preliminary NO GROWTH AFTER 24 HOURS [place]/IV: Voiding Method Toilet IV Catheter Type [Right INT / Saline Lock Antecubital] Active Medications - Current Medications Current Medications: Generic Name Dose Route Start Last Admin Trade Name Freq PRN Reason Stop Dose Admin Acetaminophen 650 mg 10/11/19 17:50 10/11/19 23:22 Tylenol PO 650 mg Q4H PRN Administration Pain MILD(1-3)/Fever >100.5/HOLT Amlodipine Besylate 5 mg 10/13/19 10:00 10/13/19 09:51 Amlodipine PO Not Given QDAY SRINIVAS Heparin Sodium (Porcine) 5,000 unit 10/11/19 22:00 10/13/19 09:51 Heparin SUB-Q 5,000 unit Q12HR SRINIVAS Administration REMDESIVIR 100 mg/ Sodium 250 mls @ 500 mls/hr 10/13/19 16:00 Chloride IV 10/16/19 16:29 Q24H SRINIVAS Lisinopril 20 mg 10/13/19 10:00 10/13/19 09:51 Zestril PO Not Given QDAY SRINIVAS Methylprednisolone Sodium Succinate 40 mg 10/11/19 22:00 10/13/19 05:05 Solu-Medrol IV 40 mg Q8HR SRINIVAS Administration Ondansetron HCl 4 mg 10/11/19 17:50 10/11/19 23:21 Zofran IV 4 mg Q8H PRN Administration Nausea And Vomiting Pantoprazole Sodium 20 mg 10/12/19 12:29 10/13/19 09:51 Protonix PO 20 mg QDAY SRINIVAS Administration Sodium Chloride 10 ml 10/11/19 22:00 10/13/19 09:51 Sodium Chloride Flush Syringe 10 Ml IV 10 ml BID SRINIVAS Administration Sodium Chloride 10 ml 10/11/19 17:50 Sodium Chloride Flush Syringe 10 Ml IV PRN PRN LINE FLUSH Sodium Chloride 50 ml 10/12/19 16:00 10/12/19 18:20 Nacl 0.9% IV 10/16/19 16:01 50 ml Q24H SRINIVAS Administration Tizanidine HCl 4 mg 10/12/19 12:28 Zanaflex PO DAILY PRN Sleep Nutrition/Malnutrition Assess - Dietary Evaluation Nutrition/Malnutrition Findings: Nutrition Notes Start: 10/12/19 08:09 Freq: Status: Active Protocol: Document 10/12/19 08:09 LP (Rec: 10/12/19 08:12 LP [email or web address]) Nutrition Notes 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 Pt did not answer phone. Nutrition Intervention Follow-Up By: 10/14/19 Additional Comments Follow for assessment
[2019-10-13] MEDS: REMDESIVIR 100 MG in SODIUM CHLORIDE 0.9% 250ML 250 ML IV SCH (15:58)
[2019-10-13] MEDS: SODIUM CHLORIDE 0.9% 50 ML IVPB IV SCH (17:00)
--- NOTE | 2019-10-13 20:34 | Progress Note ---
Assessment and Plan - Patient Problems (1) Acute hypoxemic respiratory failure Current Visit: Yes Status: Acute Plan to address problem: Chest x-ray, supplemental oxygen, nebulizer therapy, pulse oximetry, noninvasive positive pressure ventilation as clinically indicated, pulmonary toilet, prone positioning while in bed. (2) Urinary tract infection Current Visit: Yes Status: Acute Qualifiers: Encounter type: initial encounter Plan to address problem: CBC, urinalysis, IV antibiotic therapy. (3) Obesity hypoventilation syndrome Current Visit: Yes Status: Acute Plan to address problem: Supplemental oxygen, pulse oximetry, increased physical activity at discharge. Noninvasive positive pressure ventilation as clinically indicated. (4) Bilateral pneumonia Current Visit: Yes Status: Acute Plan to address problem: Chest x-ray, IV antibiotic therapy, supplemental oxygen, nebulizer therapy, pulse oximetry, noninvasive positive pressure ventilation as clinically indicated. Arterial blood gas reviewed. (5) Suspected COVID-19 virus infection Current Visit: Yes Status: Acute Plan to address problem: COVID-19 protocol: Infectious disease service consulted, IV steroid therapy, coronavirus PCR positive, contact precautions, isolation precautions, prone positioning while in bed. Remdesivir ordered today (6) DVT prophylaxis Current Visit: Yes Status: Acute Plan to address problem: SCD to bilateral lower extremities, prophylactic heparin. History Interval history: 54 YO Female HD #3 with COVID 19 confirmed by PCR with Remdesivir ordered today., Pneumonia, Acute Respiratory Failure, Obesity Hypoventilation Syndrome, GERD, UTI. Patient states that her breathing is improved today. patient does continue to acknowledge shortness of breath at rest and with exertion. No reported nursing events overnight. Hospitalist Physical - Constitutional Vitals: Temp Pulse Resp BP Pulse Ox 98.5 F 75 22 121/92 94 10/13/19 17:16 10/13/19 17:16 10/13/19 17:16 10/13/19 17:16 10/13/19 17:16 General appearance: Present: mild distress, obese - EENT Eyes: Present: PERRL ENT: hearing intact - Neck Neck: Present: supple - Respiratory Respiratory effort: normal Respiratory: bilateral: diminished - Cardiovascular Rhythm: regular Heart Sounds: Present: S1 & S2 - Extremities Extremities: no ischemia Peripheral Pulses: within normal limits - Abdominal General gastrointestinal: soft, non-tender, non-distended - Integumentary Integumentary: Present: clear, dry - Psychiatric Psychiatric: appropriate mood/affect, cooperative - Neurologic Neurologic: CNII-XII intact HEART Score - HEART Score Troponin: Troponin T < 0.010 ng/mL (0.00-0.029) 10/11/19 14:52 Results - Labs CBC & Chem 7: 10/12/19 05:16 10/12/19 05:16 Labs: Laboratory Last Values WBC 5.1 K/mm3 (4.5-11.0) 10/12/19 05:16 RBC 4.54 M/mm3 (3.65-5.03) 10/12/19 05:16 Hgb 12.9 gm/dl (10.1-14.3) 10/12/19 05:16 Hct 38.6 % (30.3-42.9) D 10/12/19 05:16 MCV 85 fl (79-97) 10/12/19 05:16 MCH 29 pg (28-32) 10/12/19 05:16 MCHC 34 % (30-34) 10/12/19 05:16 RDW 14.5 % (13.2-15.2) 10/12/19 05:16 Plt Count 162 K/mm3 (140-440) 10/12/19 05:16 Lymph % (Auto) 14.2 % (13.4-35.0) 10/12/19 05:16 [place] % (Auto) 3.8 % (0.0-7.3) 10/12/19 05:16 Eos % (Auto) 0.0 % (0.0-4.3) 10/12/19 05:16 Baso % (Auto) 0.1 % (0.0-1.8) 10/12/19 05:16 Lymph # 0.7 K/mm3 (1.2-5.4) L 10/12/19 05:16 [place] # 0.2 K/mm3 (0.0-0.8) 10/12/19 05:16 Eos # 0.0 K/mm3 (0.0-0.4) 10/12/19 05:16 Baso # 0.0 K/mm3 (0.0-0.1) 10/12/19 05:16 Seg Neutrophils % 81.9 % (40.0-70.0) H 10/12/19 05:16 Seg Neutrophils # 4.2 K/mm3 (1.8-7.7) 10/12/19 05:16 D-Dimer 438.29 ng/mlDDU (0-234) H 10/11/19 18:17 ABG pH 7.402 pH Units (7.350-7.450) 10/11/19 15:17 ABG pCO2 38.9 mm Hg 10/11/19 15:17 ABG pO2 54.7 mm Hg (80.0-90.0) L 10/11/19 15:17 ABG HCO3 23.7 mmol/L (20.0-26.0) 10/11/19 15:17 ABG O2 Saturation 91.4 % (95.0-99.0) L 10/11/19 15:17 ABG O2 Content 17.9 (0.0-44) 10/11/19 15:17 ABG Base Excess -0.9 mmol/L (-2.0-3.0) 10/11/19 15:17 ABG Hemoglobin 14.3 gm/dl (12.0-16.0) 10/11/19 15:17 ABG Carboxyhemoglobin 1.5 % (0.0-5.0) 10/11/19 15:17 ABG Methemoglobin 0.8 % (0.0-1.5) 10/11/19 15:17 Oxyhemoglobin 89.4 % (95.0-99.0) L 10/11/19 15:17 FiO2 21 % 10/11/19 15:17 Sodium 139 mmol/L (137-145) 10/12/19 05:16 Potassium 5.1 mmol/L (3.6-5.0) H 10/12/19 05:16 Chloride 102.9 mmol/L (98-107) 10/12/19 05:16 Carbon Dioxide 22 mmol/L (22-30) 10/12/19 05:16 Anion Gap 19 mmol/L 10/12/19 05:16 BUN 21 mg/dL (7-17) H 10/12/19 05:16 Creatinine 0.7 mg/dL (0.7-1.2) 10/12/19 05:16 Estimated GFR > 60 ml/min 10/12/19 05:16 BUN/Creatinine Ratio 30 % 10/12/19 05:16 Glucose 102 mg/dL (65-100) H 10/12/19 05:16 Lactic Acid 1.50 mmol/L (0.7-2.0) 10/11/19 Unknown Calcium 8.3 mg/dL (8.4-10.2) L 10/12/19 05:16 Magnesium 3.00 mg/dL (1.7-2.3) H 10/11/19 14:52 Ferritin 719.2 ng/mL (13.0-400.0) H 10/11/19 18:17 Total Bilirubin 0.40 mg/dL (0.1-1.2) 10/11/19 Unknown AST 60 units/L (5-40) H 10/11/19 Unknown ALT 34 units/L (7-56) 10/11/19 Unknown Alkaline Phosphatase 51 units/L (35-129) 10/11/19 Unknown Lactate Dehydrogenase 399 units/L (91-180) H 10/11/19 18:17 Total Creatine Kinase 288 units/L (30-135) H 10/11/19 14:52 CK-MB (CK-2) 1.1 ng/mL (0.0-4.0) 10/11/19 14:52 CK-MB (CK-2) Rel Index 0.3 (0-4) 10/11/19 14:52 Troponin T < 0.010 ng/mL (0.00-0.029) 10/11/19 14:52 NT-Pro-B Natriuret Pep 8.60 pg/mL (0-900) 10/11/19 14:52 Total Protein 7.6 g/dL (6.3-8.2) 10/11/19 Unknown Albumin 3.7 g/dL (3.9-5) L 10/11/19 Unknown Albumin/Globulin Ratio 0.9 % 10/11/19 Unknown Procalcitonin 0.14 ng/mL (<0.15) 10/11/19 18:17 TSH 0.923 mlU/mL (0.270-4.200) 10/11/19 14:52 Free T4 0.99 ng/dL (0.76-1.46) 10/11/19 14:52 Urine Color Irene (Yellow) 10/11/19 Unknown Urine Turbidity Cloudy (Clear) 10/11/19 Unknown Urine pH 5.0 (5.0-7.0) 10/11/19 Unknown Ur Specific [place] 1.025 (1.003-1.030) 10/11/19 Unknown Urine Protein 100 mg/dl mg/dL (Negative) 10/11/19 Unknown Urine Glucose (UA) Neg mg/dL (Negative) 10/11/19 Unknown Urine Ketones 20 mg/dL (Negative) 10/11/19 Unknown Urine Blood Neg (Negative) 10/11/19 Unknown Urine Nitrite Neg (Negative) 10/11/19 Unknown Urine Bilirubin Neg (Negative) 10/11/19 Unknown Urine Urobilinogen < 2.0 mg/dL (<2.0) 10/11/19 Unknown Ur Leukocyte Esterase Mod (Negative) 10/11/19 Unknown Urine WBC (Auto) 33.0 /HPF (0.0-6.0) H 10/11/19 Unknown Urine RBC (Auto) 4.0 /HPF (0.0-6.0) 10/11/19 Unknown U Epithel Cells (Auto) 1.0 /HPF (0-13.0) 10/11/19 Unknown Urine Bacteria (Auto) 1+ /HPF (Negative) 10/11/19 Unknown Urine Mucus 1+ /HPF 10/11/19 Unknown Nasal Screen MRSA (PCR) Negative (Negative) 10/12/19 00:01 Coronavirus (PCR) Positive (Negative) A 10/12/19 Unknown Microbiology: Microbiology 10/11/19 Unknown Peripheral/Venous Blood Culture - Preliminary NO GROWTH AFTER 48 HOURS 10/11/19 Unknown Peripheral/Venous Blood Culture - Preliminary NO GROWTH AFTER 48 HOURS 10/11/19 Unknown Urine,Clean Catch Urine Culture - Preliminary [place]rington/IV: Voiding Method Toilet IV Catheter Type [Right INT / Saline Lock Antecubital] Active Medications - Current Medications Current Medications: Generic Name Dose Route Start Last Admin Trade Name Freq PRN Reason Stop Dose Admin Acetaminophen 650 mg 10/11/19 17:50 10/11/19 23:22 Tylenol PO 650 mg Q4H PRN Administration Pain MILD(1-3)/Fever >100.5/HOLT Amlodipine Besylate 5 mg 10/13/19 10:00 10/13/19 09:51 Amlodipine PO Not Given QDAY [facility] Guaifenesin 200 mg 10/13/19 12:21 Robitussin PO Q6H PRN Cough Heparin Sodium (Porcine) 5,000 unit 10/11/19 22:00 10/13/19 09:51 Heparin SUB-Q 5,000 unit Q12HR SRINIVAS Administration REMDESIVIR 100 mg/ Sodium 250 mls @ 500 mls/hr 10/13/19 16:00 10/13/19 15:58 Chloride IV 10/16/19 16:29 500 mls/hr Q24H SRINIVAS Administration Lisinopril 20 mg 10/13/19 10:00 10/13/19 09:51 Zestril PO Not Given QDAY SRINIVAS Methylprednisolone Sodium Succinate 40 mg 10/11/19 22:00 10/13/19 13:15 Solu-Medrol IV 40 mg Q8HR SRINIVAS Administration Ondansetron HCl 4 mg 10/11/19 17:50 10/11/19 23:21 Zofran IV 4 mg Q8H PRN Administration Nausea And Vomiting Pantoprazole Sodium 20 mg 10/12/19 12:29 10/13/19 09:51 Protonix PO 20 mg QDAY SRINIVAS Administration Sodium Chloride 10 ml 10/11/19 22:00 10/13/19 09:51 Sodium Chloride Flush Syringe 10 Ml IV 10 ml BID SRINIVAS Administration Sodium Chloride 10 ml 10/11/19 17:50 Sodium Chloride Flush Syringe 10 Ml IV PRN PRN LINE FLUSH Sodium Chloride 50 ml 10/12/19 16:00 10/13/19 17:00 Nacl 0.9% IV 10/16/19 16:01 50 ml Q24H SRINIVAS Administration Tizanidine HCl 4 mg 10/12/19 12:28 Zanaflex PO DAILY PRN Sleep Nutrition/Malnutrition Assess - Dietary Evaluation Nutrition/Malnutrition Findings: Nutrition Notes Start: 10/12/19 08:09 Freq: Status: Active Protocol: Document 10/12/19 08:09 LP (Rec: 10/12/19 08:12 LP [email or web address]) Nutrition Notes 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 Pt did not answer phone. Nutrition Intervention Follow-Up By: 10/14/19 Additional Comments Follow for assessment
[2019-10-13] MEDS: guaiFENesin 200 MG TAB PO PRN (21:46)
[2019-10-14] MEDS: methylPREDNISolone Sod Succinate 40 MG/1 ML INJ IV SCH ×3 (05:30→23:20)
[2019-10-14 05:55] LABS: Alanine Aminotransferase 29 units/L (7-56); Albumin 3.1 g/dL (3.9-5); BUN/Creatinine Ratio 33; Blood Urea Nitrogen 23 mg/dL (7-17); Calcium 8.8 mg/dL (8.4-10.2); Hemolysis Index 4
[2019-10-14 06:50] LABS: Hematocrit 37.6 % (30.3-42.9); Hemoglobin 12.5 gm/dl (10.1-14.3)
[2019-10-14] MEDS: HEPARIN 5,000 UNIT/1 ML VIAL SUB-Q SCH ×2 (09:37→23:21)
[2019-10-14] MEDS: PANTOPRAZOLE 20 MG TAB PO SCH (09:37)
[2019-10-14] MEDS: amLODIPine 5 MG TAB PO SCH (09:38)
[2019-10-14] MEDS: LISINOPRIL 20 MG TAB PO SCH (09:38)
--- NOTE | 2019-10-14 13:32 | Progress Note ---
Assessment and Plan - Patient Problems (1) Acute hypoxemic respiratory failure Current Visit: Yes Status: Acute Plan to address problem: Chest x-ray, supplemental oxygen, nebulizer therapy, pulse oximetry, noninvasive positive pressure ventilation as clinically indicated, pulmonary toilet, prone positioning while in bed. (2) Urinary tract infection Current Visit: Yes Status: Acute Qualifiers: Encounter type: initial encounter Plan to address problem: CBC, urinalysis, IV antibiotic therapy. (3) Obesity hypoventilation syndrome Current Visit: Yes Status: Acute Plan to address problem: Supplemental oxygen, pulse oximetry, increased physical activity at discharge. Noninvasive positive pressure ventilation as clinically indicated. (4) Bilateral pneumonia Current Visit: Yes Status: Acute Plan to address problem: Chest x-ray, IV antibiotic therapy, supplemental oxygen, nebulizer therapy, pulse oximetry, noninvasive positive pressure ventilation as clinically indicated. Arterial blood gas reviewed. (5) Suspected COVID-19 virus infection Current Visit: Yes Status: Acute Plan to address problem: COVID-19 protocol: Infectious disease service consulted, IV steroid therapy, coronavirus PCR positive, contact precautions, isolation precautions, prone positioning while in bed. Remdesivir Day 2 (6) DVT prophylaxis Current Visit: Yes Status: Acute Plan to address problem: SCD to bilateral lower extremities, prophylactic heparin. History Interval history: 54 YO Female HD #4 with COVID 19 confirmed by PCR with Remdesivir Day ., Pneumonia, Acute Respiratory Failure, Obesity Hypoventilation Syndrome, GERD, UTI. Patient states that her breathing is improved today. patient does co ntinue to acknowledge shortness of breath at rest and with exertion. No reported nursing events overnight. Patient care plan discussed. Hospitalist Physical - Constitutional Vitals: Temp Pulse Resp BP Pulse Ox 98.7 F 56 L 20 142/89 96 10/14/19 04:30 10/14/19 09:00 10/14/19 09:00 10/14/19 04:30 10/14/19 10:58 General appearance: Present: mild distress, obese - EENT Eyes: Present: PERRL, EOM intact ENT: hearing intact - Neck Neck: Present: supple - Respiratory Respiratory effort: labored Respiratory: bilateral: diminished - Cardiovascular Rhythm: regular Heart Sounds: Present: S1 & S2 - Extremities Extremities: no ischemia Peripheral Pulses: within normal limits - Abdominal General gastrointestinal: soft, non-tender, non-distended - Integumentary Integumentary: Present: clear, warm, dry - Psychiatric Psychiatric: appropriate mood/affect, cooperative - Neurologic Neurologic: CNII-XII intact HEART Score - HEART Score Troponin: Troponin T < 0.010 ng/mL (0.00-0.029) 10/11/19 14:52 Results - Labs CBC & Chem 7: 10/14/19 06:20 10/14/19 05:06 Labs: Laboratory Last Values WBC 5.1 K/mm3 (4.5-11.0) 10/12/19 05:16 RBC 4.54 M/mm3 (3.65-5.03) 10/12/19 05:16 Hgb 12.5 gm/dl (10.1-14.3) 10/14/19 06:20 Hct 37.6 % (30.3-42.9) 10/14/19 06:20 MCV 85 fl (79-97) 10/12/19 05:16 MCH 29 pg (28-32) 10/12/19 05:16 MCHC 34 % (30-34) 10/12/19 05:16 RDW 14.5 % (13.2-15.2) 10/12/19 05:16 Plt Count 162 K/mm3 (140-440) 10/12/19 05:16 Lymph % (Auto) 14.2 % (13.4-35.0) 10/12/19 05:16 [place] % (Auto) 3.8 % (0.0-7.3) 10/12/19 05:16 Eos % (Auto) 0.0 % (0.0-4.3) 10/12/19 05:16 Baso % (Auto) 0.1 % (0.0-1.8) 10/12/19 05:16 Lymph # 0.7 K/mm3 (1.2-5.4) L 10/12/19 05:16 [place] # 0.2 K/mm3 (0.0-0.8) 10/12/19 05:16 Eos # 0.0 K/mm3 (0.0-0.4) 10/12/19 05:16 Baso # 0.0 K/mm3 (0.0-0.1) 10/12/19 05:16 Seg Neutrophils % 81.9 % (40.0-70.0) H 10/12/19 05:16 Seg Neutrophils # 4.2 K/mm3 (1.8-7.7) 10/12/19 05:16 D-Dimer 438.29 ng/mlDDU (0-234) H 10/11/19 18:17 ABG pH 7.402 pH Units (7.350-7.450) 10/11/19 15:17 ABG pCO2 38.9 mm Hg 10/11/19 15:17 ABG pO2 54.7 mm Hg (80.0-90.0) L 10/11/19 15:17 ABG HCO3 23.7 mmol/L (20.0-26.0) 10/11/19 15:17 ABG O2 Saturation 91.4 % (95.0-99.0) L 10/11/19 15:17 ABG O2 Content 17.9 (0.0-44) 10/11/19 15:17 ABG Base Excess -0.9 mmol/L (-2.0-3.0) 10/11/19 15:17 ABG Hemoglobin 14.3 gm/dl (12.0-16.0) 10/11/19 15:17 ABG Carboxyhemoglobin 1.5 % (0.0-5.0) 10/11/19 15:17 ABG Methemoglobin 0.8 % (0.0-1.5) 10/11/19 15:17 Oxyhemoglobin 89.4 % (95.0-99.0) L 10/11/19 15:17 FiO2 21 % 10/11/19 15:17 Sodium 139 mmol/L (137-145) 10/14/19 05:06 Potassium 4.6 mmol/L (3.6-5.0) 10/14/19 05:06 Chloride 102.2 mmol/L (98-107) 10/14/19 05:06 Carbon Dioxide 25 mmol/L (22-30) 10/14/19 05:06 Anion Gap 16 mmol/L 10/14/19 05:06 BUN 23 mg/dL (7-17) H 10/14/19 05:06 Creatinine 0.7 mg/dL (0.7-1.2) 10/14/19 05:06 Estimated GFR > 60 ml/min 10/14/19 05:06 BUN/Creatinine Ratio 33 % 10/14/19 05:06 Glucose 147 mg/dL (65-100) H 10/14/19 05:06 Lactic Acid 1.50 mmol/L (0.7-2.0) 10/11/19 Unknown Calcium 8.8 mg/dL (8.4-10.2) 10/14/19 05:06 Magnesium 3.00 mg/dL (1.7-2.3) H 10/11/19 14:52 Ferritin 719.2 ng/mL (13.0-400.0) H 10/11/19 18:17 Total Bilirubin 0.30 mg/dL (0.1-1.2) 10/14/19 05:06 AST 29 units/L (5-40) 10/14/19 05:06 ALT 29 units/L (7-56) 10/14/19 05:06 Alkaline Phosphatase 48 units/L (35-129) 10/14/19 05:06 Lactate Dehydrogenase 340 units/L (91-180) H 10/14/19 05:06 Total Creatine Kinase 288 units/L (30-135) H 10/11/19 14:52 CK-MB (CK-2) 1.1 ng/mL (0.0-4.0) 10/11/19 14:52 CK-MB (CK-2) Rel Index 0.3 (0-4) 10/11/19 14:52 Troponin T < 0.010 ng/mL (0.00-0.029) 10/11/19 14:52 NT-Pro-B Natriuret Pep 8.60 pg/mL (0-900) 10/11/19 14:52 Total Protein 6.7 g/dL (6.3-8.2) 10/14/19 05:06 Albumin 3.1 g/dL (3.9-5) L 10/14/19 05:06 Albumin/Globulin Ratio 0.9 % 10/14/19 05:06 Procalcitonin 0.14 ng/mL (<0.15) 10/11/19 18:17 TSH 0.923 mlU/mL (0.270-4.200) 10/11/19 14:52 Free T4 0.99 ng/dL (0.76-1.46) 10/11/19 14:52 Urine Color Irene (Yellow) 10/11/19 Unknown Urine Turbidity Cloudy (Clear) 10/11/19 Unknown Urine pH 5.0 (5.0-7.0) 10/11/19 Unknown Ur Specific [place] 1.025 (1.003-1.030) 10/11/19 Unknown Urine Protein 100 mg/dl mg/dL (Negative) 10/11/19 Unknown Urine Glucose (UA) Neg mg/dL (Negative) 10/11/19 Unknown Urine Ketones 20 mg/dL (Negative) 10/11/19 Unknown Urine Blood Neg (Negative) 10/11/19 Unknown Urine Nitrite Neg (Negative) 10/11/19 Unknown Urine Bilirubin Neg (Negative) 10/11/19 Unknown Urine Urobilinogen < 2.0 mg/dL (<2.0) 10/11/19 Unknown Ur Leukocyte Esterase Mod (Negative) 10/11/19 Unknown Urine WBC (Auto) 33.0 /HPF (0.0-6.0) H 10/11/19 Unknown Urine RBC (Auto) 4.0 /HPF (0.0-6.0) 10/11/19 Unknown U Epithel Cells (Auto) 1.0 /HPF (0-13.0) 10/11/19 Unknown Urine Bacteria (Auto) 1+ /HPF (Negative) 10/11/19 Unknown Urine Mucus 1+ /HPF 10/11/19 Unknown Nasal Screen MRSA (PCR) Negative (Negative) 10/12/19 00:01 Coronavirus (PCR) Positive (Negative) A 10/12/19 Unknown Microbiology: Microbiology 10/14/19 06:14 Stool Stool Occult Blood (LUZMARIA) - Final 10/11/19 Unknown Urine,Clean Catch Urine Culture - Final 10/11/19 Unknown Peripheral/Venous Blood Culture - Preliminary NO GROWTH AFTER 48 HOURS 10/11/19 Unknown Peripheral/Venous Blood Culture - Preliminary NO GROWTH AFTER 48 HOURS [place]rington/IV: Voiding Method Toilet IV Catheter Type [Right INT / Saline Lock Antecubital] Active Medications - Current Medications Current Medications: Generic Name Dose Route Start Last Admin Trade Name Freq PRN Reason Stop Dose Admin Acetaminophen 650 mg 10/11/19 17:50 10/11/19 23:22 Tylenol PO 650 mg Q4H PRN Administration Pain MILD(1-3)/Fever >100.5/HOLT Amlodipine Besylate 5 mg 10/13/19 10:00 10/14/19 09:38 Amlodipine PO Not Given QDAY SRINIVAS Guaifenesin 200 mg 10/13/19 12:21 10/13/19 21:46 Robitussin PO 200 mg Q6H PRN Administration Cough Heparin Sodium (Porcine) 5,000 unit 10/11/19 22:00 10/14/19 09:37 Heparin SUB-Q 5,000 unit Q12HR SRINIVAS Administration REMDESIVIR 100 mg/ Sodium 250 mls @ 500 mls/hr 10/13/19 16:00 10/13/19 15:58 Chloride IV 10/16/19 16:29 500 mls/hr Q24H SRINIVAS Administration Lisinopril 20 mg 10/13/19 10:00 10/14/19 09:38 Zestril PO Not Given QDAY SRINIVAS Methylprednisolone Sodium Succinate 40 mg 10/11/19 22:00 10/14/19 13:16 Solu-Medrol IV 40 mg Q8HR SRINIVAS Administration Ondansetron HCl 4 mg 10/11/19 17:50 10/11/19 23:21 Zofran IV 4 mg Q8H PRN Administration Nausea And Vomiting Pantoprazole Sodium 20 mg 10/12/19 12:29 10/14/19 09:37 Protonix PO 20 mg QDAY SRINIVAS Administration Sodium Chloride 10 ml 10/11/19 22:00 10/14/19 09:38 Sodium Chloride Flush Syringe 10 Ml IV 10 ml BID SRINIVAS Administration Sodium Chloride 10 ml 10/11/19 17:50 Sodium Chloride Flush Syringe 10 Ml IV PRN PRN LINE FLUSH Sodium Chloride 50 ml 10/12/19 16:00 10/13/19 17:00 Nacl 0.9% IV 10/16/19 16:01 50 ml Q24H SRINIVAS Administration Tizanidine HCl 4 mg 10/12/19 12:28 Zanaflex PO DAILY PRN Sleep Nutrition/Malnutrition Assess - Dietary Evaluation Nutrition/Malnutrition Findings: Nutrition Notes Start: 10/12/19 08 :09 Freq: Status: Active Protocol: Document 10/14/19 12:22 LM (Rec: 10/14/19 12:31 LM [email or web address]) Nutrition Notes Initial or Follow up Assessment Current Diagnosis Hypertension,Respiratory Failure Other Pertinent Diagnosis Bilat pneu, COVID-19 Current Diet regular Labs/Tests BUN 23 Pertinent Medications Solu-Medrol Height 5 ft 2 in Weight 73.9 kg [place] Body Weight (kg) 50.00 BMI 29.7 Weight change and time frame 11% wt loss in 1 week per chart Weight Status Overweight Subjective/Other Information Unable to reach pt by phone. Per RN notes, pt has lost 20lb due to not being able to eat. Pt with poor intakes in chart . Burn Absent Trauma Absent Current % PO Poor (25-49%) Minimum of two criteria Yes Energy Intake (non-severe) <75% Estimated Energy Requirement >7 days Interpretation of Weight Loss (severe) >2% in 1 week #1 Nutrition Diagnosis Malnutrition Etiology COVID-19, chronic illness As Evidenced by Signs and Symptoms Pt with 11% wt loss in 1 week, pt not eating for 1 week Is patient on ventilator? No Is Patient Ambulatory and/or Out of Bed Yes REE-([facility] [place]-ambulatory/OOB) [ [id number]] Calculation Used for Recommendations [facility] Additional Notes Protein: 74-93g (1.2-1.5g/kg using AdjBW 62kg) Fluid: 1ml/kcal Nutrition Intervention Change Diet Order: continue Add Supplement/Snack (indicate name/kcal Ensure Enlive daily /protein ) Provides kCal: 350 Provides Protein (gm) 20 Goal #1 Meet at least 75% of energy and protein needs Anticipated Discharge Needs: cardiac Follow-Up By: 10/16/19 Additional Comments F/U for intakes
[2019-10-14] MEDS ORDERED: HYDROcodone/HOMATROPINE 5-1.5MG /5 ML ORAL LIQD UNIT DOSE PO PRN (13:33)
--- NOTE | 2019-10-14 15:05 | Progress Note ---
Assessment and Plan Cultures: Coronavirus PCR: Positive A/P: 54-year-old female with hypertension, obesity: Bilateral pneumonia: Secondary to COVID. D-dimer 438, ferritin 719, LDH 399, procalcitonin 0.14. Chest x-ray showed bilateral bronchopneumonia. Acute hypoxic respiratory failure: on oxygen Recs: continue steroids per IMS continue Remdesivir 3 of 5 days, monitor LFTs prophylactic anticoagulation based on d-dimer: LMWH 0.5 mg/kg q12 hrs trend ferritin, LDH, d-dimer, CRP every 2-3 days for risk stratification and to assess disease progression Gonzales Swan MD, FACP [facility] C: [phone] O: [phone] F: [phone] Subjective Date of service: 10/14/19 Interval history: No fever. Remains on oxygen. Objective - Exam Narrative Exam: Physical Exam (reviewed in chart due to PPE conservation) Constitutional: limited due to PPE conservation strategy Head, Ears, Nose: limited due to PPE conservation strategy Eyes: limited due to PPE conservation strategy Neck: limited due to PPE conservation strategy Oral: limited due to PPE conservation strategy Cardiovascular: limited due to PPE conservation strategy Respiratory: limited due to PPE conservation strategy GI: limited due to PPE conservation strategy Musculoskeletal: limited due to PPE conservation strategy Skin: limited due to PPE conservation strategy Hem/Lymphatic: limited due to PPE conservation strategy Psych: limited due to PPE conservation strategy Neurological: limited due to PPE conservation strategy - Constitutional Vitals: Vital Signs Temp Pulse Resp BP Pulse Ox 98.2 F 66 22 131/93 94 10/14/19 11:42 10/14/19 11:42 10/14/19 11:42 10/14/19 11:42 10/14/19 11:42 Temperature -Last 24 Hours Temperature 98.2 F Temperature 98.7 F Temperature 98.5 F - Labs CBC & Chem 7: 10/14/19 06:20 10/14/19 05:06 Labs: Abnormal lab results 10/14/19 Range/Units 05:06 BUN 23 H (7-17) mg/dL Glucose 147 H (65-100) mg/dL Lactate Dehydrogenase 340 H (91-180) units/L Albumin 3.1 L (3.9-5) g/dL
[2019-10-14] MEDS: REMDESIVIR 100 MG in SODIUM CHLORIDE 0.9% 250ML 250 ML IV SCH (17:38)
[2019-10-14] MEDS: SODIUM CHLORIDE 0.9% 50 ML IVPB IV SCH (18:44)
[2019-10-14] MEDS: guaiFENesin 200 MG TAB PO PRN (23:21)
[2019-10-15] MEDS: methylPREDNISolone Sod Succinate 40 MG/1 ML INJ IV SCH ×3 (05:22→23:20)
--- NOTE | 2019-10-15 09:23 | Progress Note ---
Assessment and Plan Assessment and plan: 54 YO Female with COVID 19 confirmed by PCR with Remdesivir Day 4 of ., Pneumonia, Acute Respiratory Failure, Obesity Hypoventilation Syndrome, GERD, UTI. Patient states that her breathing is improved today. patient does continue to acknowledge shortness of breath at rest and with exertion. No reported nursing events overnight. Patient care plan discussed 10/14: Patient has remained afebrile. Hemoglobin has remained stable. Recommend outpatient GI evaluation. Possible discharge today if respiratory status is improved. Urine culture is unremarkable. I have discussed extensively age-appropriate cancer screening with the patient. (1) Acute hypoxemic respiratory failure Current Visit: Yes Status: Acute Plan to address problem: Chest x-ray, supplemental oxygen, nebulizer therapy, pulse oximetry, noninvasive positive pressure ventilation as clinically indicated, pulmonary toilet, prone positioning while in bed. (2) Urinary tract infection Current Visit: Yes Status: Acute Qualifiers: Encounter type: initial encounter Plan to address problem: CBC, urinalysis, IV antibiotic therapy. (3) Obesity hypoventilation syndrome Current Visit: Yes Status: Acute Plan to address problem: Supplemental oxygen, pulse oximetry, increased physical activity at discharge. Noninvasive positive pressure ventilation as clinically indicated. (4) Bilateral pneumonia Current Visit: Yes Status: Acute Plan to address problem: Chest x-ray, IV antibiotic therapy, supplemental oxygen, nebulizer therapy, pulse oximetry, noninvasive positive pressure ventilation as clinically indicated. Arterial blood gas reviewed. (5) Suspected COVID-19 virus infection Current Visit: Yes Status: Acute Plan to address problem: COVID-19 protocol: Infectious disease service consulted, IV steroid therapy, coronavirus PCR positive, contact precautions, isolation precautions, prone positioning while in bed. Remdesivir Day 4 of 5 (6) positive stool for occult blood Mild drop in hemoglobin from 15 to around 12. No overt GI bleed noted. This may be secondary to hemorrhoids. Will recommend outpatient GI evaluation. DVT prophylaxis Current Visit: Yes Status: Acute Plan to address problem: SCD to bilateral lower extremities, prophylactic heparin. . History Interval history: Patient seen and examined, resting, no new complaints, still with shortness of breath, hypoxic with exertion Hospitalist Physical - Physical exam Narrative exam: General appearance: Present: mild distress, obese - EENT Eyes: Present: PERRL, EOM intact ENT: hearing intact - Neck Neck: Present: supple - Respiratory Respiratory effort: labored Respiratory: bilateral: diminished - Cardiovascular Rhythm: regular Heart Sounds: Present: S1 & S2 - Extremities Extremities: no ischemia Peripheral Pulses: within normal limits - Abdominal General gastrointestinal: soft, non-tender, non-distended - Integumentary Integumentary: Present: clear, warm, dry - Psychiatric Psychiatric: appropriate mood/affect, cooperative - Neurologic Neurologic: CNII-XII intact - Constitutional Vitals: Temp Pulse Resp BP Pulse Ox 97.9 F 59 L 18 129/99 93 10/15/19 04:14 10/15/19 04:14 10/15/19 04:14 10/15/19 04:14 10/15/19 04:14 General appearance: Present: mild distress, obese HEART Score - HEART Score Troponin: Troponin T < 0.010 ng/mL (0.00-0.029) 10/11/19 14:52 Results - Labs CBC & Chem 7: 10/15/19 09:51 10/14/19 05:06 Labs: Laboratory Last Values WBC 5.1 K/mm3 (4.5-11.0) 10/12/19 05:16 RBC 4.54 M/mm3 (3.65-5.03) 10/12/19 05:16 Hgb 12.5 gm/dl (10.1-14.3) 10/14/19 06:20 Hct 37.6 % (30.3-42.9) 10/14/19 06:20 MCV 85 fl (79-97) 10/12/19 05:16 MCH 29 pg (28-32) 10/12/19 05:16 MCHC 34 % (30-34) 10/12/19 05:16 RDW 14.5 % (13.2-15.2) 10/12/19 05:16 Plt Count 162 K/mm3 (140-440) 10/12/19 05:16 Lymph % (Auto) 14.2 % (13.4-35.0) 10/12/19 05:16 [place] % (Auto) 3.8 % (0.0-7.3) 10/12/19 05:16 Eos % (Auto) 0.0 % (0.0-4.3) 10/12/19 05:16 Baso % (Auto) 0.1 % (0.0-1.8) 10/12/19 05:16 Lymph # 0.7 K/mm3 (1.2-5.4) L 10/12/19 05:16 [place] # 0.2 K/mm3 (0.0-0.8) 10/12/19 05:16 Eos # 0.0 K/mm3 (0.0-0.4) 10/12/19 05:16 Baso # 0.0 K/mm3 (0.0-0.1) 10/12/19 05:16 Seg Neutrophils % 81.9 % (40.0-70.0) H 10/12/19 05:16 Seg Neutrophils # 4.2 K/mm3 (1.8-7.7) 10/12/19 05:16 D-Dimer 438.29 ng/mlDDU (0-234) H 10/11/19 18:17 ABG pH 7.402 pH Units (7.350-7.450) 10/11/19 15:17 ABG pCO2 38.9 mm Hg 10/11/19 15:17 ABG pO2 54.7 mm Hg (80.0-90.0) L 10/11/19 15:17 ABG HCO3 23.7 mmol/L (20.0-26.0) 10/11/19 15:17 ABG O2 Saturation 91.4 % (95.0-99.0) L 10/11/19 15:17 ABG O2 Content 17.9 (0.0-44) 10/11/19 15:17 ABG Base Excess -0.9 mmol/L (-2.0-3.0) 10/11/19 15:17 ABG Hemoglobin 14.3 gm/dl (12.0-16.0) 10/11/19 15:17 ABG Carboxyhemoglobin 1.5 % (0.0-5.0) 10/11/19 15:17 ABG Methemoglobin 0.8 % (0.0-1.5) 10/11/19 15:17 Oxyhemoglobin 89.4 % (95.0-99.0) L 10/11/19 15:17 FiO2 21 % 10/11/19 15:17 Sodium 139 mmol/L (137-145) 10/14/19 05:06 Potassium 4.6 mmol/L (3.6-5.0) 10/14/19 05:06 Chloride 102.2 mmol/L (98-107) 10/14/19 05:06 Carbon Dioxide 25 mmol/L (22-30) 10/14/19 05:06 Anion Gap 16 mmol/L 10/14/19 05:06 BUN 23 mg/dL (7-17) H 10/14/19 05:06 Creatinine 0.7 mg/dL (0.7-1.2) 10/14/19 05:06 Estimated GFR > 60 ml/min 10/14/19 05:06 BUN/Creatinine Ratio 33 % 10/14/19 05:06 Glucose 147 mg/dL (65-100) H 10/14/19 05:06 Lactic Acid 1.50 mmol/L (0.7-2.0) 10/11/19 Unknown Calcium 8.8 mg/dL (8.4-10.2) 10/14/19 05:06 Magnesium 3.00 mg/dL (1.7-2.3) H 10/11/19 14:52 Ferritin 580.8 ng/mL (13.0-400.0) H 10/14/19 04:56 Total Bilirubin 0.30 mg/dL (0.1-1.2) 10/14/19 05:06 AST 29 units/L (5-40) 10/14/19 05:06 ALT 29 units/L (7-56) 10/14/19 05:06 Alkaline Phosphatase 48 units/L (35-129) 10/14/19 05:06 Lactate Dehydrogenase 340 units/L (91-180) H 10/14/19 05:06 Total Creatine Kinase 288 units/L (30-135) H 10/11/19 14:52 CK-MB (CK-2) 1.1 ng/mL (0.0-4.0) 10/11/19 14:52 CK-MB (CK-2) Rel Index 0.3 (0-4) 10/11/19 14:52 Troponin T < 0.010 ng/mL (0.00-0.029) 10/11/19 14:52 NT-Pro-B Natriuret Pep 8.60 pg/mL (0-900) 10/11/19 14:52 Total Protein 6.7 g/dL (6.3-8.2) 10/14/19 05:06 Albumin 3.1 g/dL (3.9-5) L 10/14/19 05:06 Albumin/Globulin Ratio 0.9 % 10/14/19 05:06 Procalcitonin 0.14 ng/mL (<0.15) 10/11/19 18:17 TSH 0.923 mlU/mL (0.270-4.200) 10/11/19 14:52 Free T4 0.99 ng/dL (0.76-1.46) 10/11/19 14:52 Urine Color Irene (Yellow) 10/11/19 Unknown Urine Turbidity Cloudy (Clear) 10/11/19 Unknown Urine pH 5.0 (5.0-7.0) 10/11/19 Unknown Ur Specific [place] 1.025 (1.003-1.030) 10/11/19 Unknown Urine Protein 100 mg/dl mg/dL (Negative) 10/11/19 Unknown Urine Glucose (UA) Neg mg/dL (Negative) 10/11/19 Unknown Urine Ketones 20 mg/dL (Negative) 10/11/19 Unknown Urine Blood Neg (Negative) 10/11/19 Unknown Urine Nitrite Neg (Negative) 10/11/19 Unknown Urine Bilirubin Neg (Negative) 10/11/19 Unknown Urine Urobilinogen < 2.0 mg/dL (<2.0) 10/11/19 Unknown Ur Leukocyte Esterase Mod (Negative) 10/11/19 Unknown Urine WBC (Auto) 33.0 /HPF (0.0-6.0) H 10/11/19 Unknown Urine RBC (Auto) 4.0 /HPF (0.0-6.0) 10/11/19 Unknown U Epithel Cells (Auto) 1.0 /HPF (0-13.0) 10/11/19 Unknown Urine Bacteria (Auto) 1+ /HPF (Negative) 10/11/19 Unknown Urine Mucus 1+ /HPF 10/11/19 Unknown Nasal Screen MRSA (PCR) Negative (Negative) 10/12/19 00:01 Coronavirus (PCR) Positive (Negative) A 10/12/19 Unknown Microbiology: Microbiology 10/11/19 Unknown Peripheral/Venous Blood Culture - Preliminary NO GROWTH AFTER 72 HOURS 10/11/19 Unknown Peripheral/Venous Blood Culture - Preliminary NO GROWTH AFTER 72 HOURS 10/14/19 06:14 Stool Stool Occult Blood (LUZMARIA) - Final 10/11/19 Unknown Urine,Clean Catch Urine Culture - Final [place]/IV: Voiding Method Toilet IV Catheter Type [Right INT / Saline Lock Antecubital] Active Medications - Current Medications Current Medications: Generic Name Dose Route Start Last Admin Trade Name Freq PRN Reason Stop Dose Admin Acetaminophen 650 mg 10/11/19 17:50 10/11/19 23:22 Tylenol PO 650 mg Q4H PRN Administration Pain MILD(1-3)/Fever >100.5/HOLT Amlodipine Besylate 5 mg 10/13/19 10:00 10/14/19 09:38 Amlodipine PO Not Given QDAY SRINIVAS Guaifenesin 200 mg 10/13/19 12:21 10/14/19 23:21 Robitussin PO 200 mg Q6H PRN Administration Cough Heparin Sodium (Porcine) 5,000 unit 10/11/19 22:00 10/14/19 23:21 Heparin SUB-Q 5,000 unit Q12HR SRINIVAS Administration Hydrocodone Bit/Homatropine Methylb 10 ml 10/14/19 13:33 Hydromet PO Q6H PRN Cough REMDESIVIR 100 mg/ Sodium 250 mls @ 500 mls/hr 10/13/19 16:00 10/14/19 17:38 Chloride IV 10/16/19 16:29 500 mls/hr Q24H SRINIVAS Administration Lisinopril 20 mg 10/13/19 10:00 10/14/19 09:38 Zestril PO Not Given QDAY SRINIVAS Methylprednisolone Sodium Succinate 40 mg 10/11/19 22:00 10/15/19 05:22 Solu-Medrol IV 40 mg Q8HR SRINIVAS Administration Ondansetron HCl 4 mg 10/11/19 17:50 10/11/19 23:21 Zofran IV 4 mg Q8H PRN Administration Nausea And Vomiting Pantoprazole Sodium 20 mg 10/12/19 12:29 10/14/19 09:37 Protonix PO 20 mg QDAY SRINIVAS Administration Sodium Chloride 10 ml 10/11/19 22:00 10/14/19 23:21 Sodium Chloride Flush Syringe 10 Ml IV 10 ml BID SRINIVAS Administration Sodium Chloride 10 ml 10/11/19 17:50 Sodium Chloride Flush Syringe 10 Ml IV PRN PRN LINE FLUSH Sodium Chloride 50 ml 10/12/19 16:00 10/14/19 18:44 Nacl 0.9% IV 10/16/19 16:01 50 ml Q24H SRINIVAS Administration Tizanidine HCl 4 mg 10/12/19 12:28 Zanaflex PO DAILY PRN Sleep Nutrition/Malnutrition Assess - Dietary Evaluation Nutrition/Malnutrition Findings: Nutrition Notes Start: 10/12/19 08:09 Freq: Status: Active Protocol: Document 10/14/19 12:22 LM (Rec: 10/14/19 12:31 LM [email or web address]) Nutrition Notes Initial or Follow up Assessment Current Diagnosis Hypertension,Respiratory Failure Other Pertinent Diagnosis Bilat pneu, COVID-19 Current Diet regular Labs/Tests BUN 23 Pertinent Medications Solu-Medrol Height 5 ft 2 in Weight 73.9 kg [place] Body Weight (kg) 50.00 BMI 29.7 Weight change and time frame 11% wt loss in 1 week per chart Weight Status Overweight Subjective/Other Information Unable to reach pt by phone. Per RN notes, pt has lost 20lb due to not being able to eat. Pt with poor intakes in chart . Burn Absent Trauma Absent Current % PO Poor (25-49%) Minimum of two criteria Yes Energy Intake (non-severe) <75% Estimated Energy Requirement >7 days Interpretation of Weight Loss (severe) >2% in 1 week #1 Nutrition Diagnosis Malnutrition Etiology COVID-19, chronic illness As Evidenced by Signs and Symptoms Pt with 11% wt loss in 1 week, pt not eating for 1 week Is patient on ventilator? No Is Patient Ambulatory and/or Out of Bed Yes REE-([facility]-ambulatory/OOB) [ [id number] [id number]] Calculation Used for Recommendations [facility] Additional Notes Protein: 74-93g (1.2-1.5g/kg using AdjBW 62kg) Fluid: 1ml/kcal Nutrition Intervention Change Diet Order: continue Add Supplement/Snack (indicate name/kcal Ensure Enlive daily /protein ) Provides kCal: 350 Provides Protein (gm) 20 Goal #1 Meet at least 75% of energy and protein needs Anticipated Discharge Needs: cardiac Follow-Up By: 10/16/19 Additional Comments F/U for intakes
[2019-10-15] MEDS: PANTOPRAZOLE 20 MG TAB PO SCH (09:34)
[2019-10-15] MEDS: HEPARIN 5,000 UNIT/1 ML VIAL SUB-Q SCH ×2 (09:34→23:22)
[2019-10-15] MEDS: LISINOPRIL 20 MG TAB PO SCH (09:35)
[2019-10-15] MEDS: amLODIPine 5 MG TAB PO SCH (09:35)
[2019-10-15 10:38] LABS: Hematocrit 41.1 % (30.3-42.9); Hemoglobin 13.5 gm/dl (10.1-14.3)
[2019-10-15] MEDS: REMDESIVIR 100 MG in SODIUM CHLORIDE 0.9% 250ML 250 ML IV SCH (16:52)
[2019-10-15] MEDS: SODIUM CHLORIDE 0.9% 50 ML IVPB IV SCH (17:06)
[2019-10-16] MEDS: methylPREDNISolone Sod Succinate 40 MG/1 ML INJ IV SCH ×2 (06:18→13:37)
[2019-10-16] MEDS: PANTOPRAZOLE 20 MG TAB PO SCH (10:40)
[2019-10-16] MEDS: amLODIPine 5 MG TAB PO SCH (10:40)
[2019-10-16] MEDS: HEPARIN 5,000 UNIT/1 ML VIAL SUB-Q SCH (10:40)
[2019-10-16] MEDS: LISINOPRIL 20 MG TAB PO SCH (10:41)
[2019-10-16 10:42] VITALS: BP 136/95
--- NOTE | 2019-10-16 11:00 | Discharge Summary ---
Providers - Providers Date of Admission: 10/11/19 17:50 Attending physician: REYNA JOSE MD 10/11/19 17:49 Consult to Physician [CONS] Routine Comment: CLD OFC TO ADV OF CONSULT @[id number] Consulting Provider: HILARIO TRAORE Physician Instructions: Reason For Exam: covid pui Primary care physician: ANDREA BABIN Hospitalization Condition: Fair Hospital course: 54 YO Female with COVID 19 confirmed by PCR with Remdesivir Day 4 of ., Pneumonia, Acute Respiratory Failure, Obesity Hypoventilation Syndrome, GERD, UTI. Patient states that her breathing is improved today. patient does continue to acknowledge shortness of breath at rest and with exertion. No reported nursing events overnight. Patient care plan discussed 10/14: Patient has remained afebrile. Hemoglobin has remained stable. Recommend outpatient GI evaluation. Possible discharge today if respiratory status is improved. Urine culture is unremarkable. I have discussed extensively age-appr opriate cancer screening with the patient. 10/15: completes remdesivir today felling better home with o2 if qualifies. continue mask and social distancing (1) Acute hypoxemic respiratory failure Current Visit: Yes Status: Acute Plan to address problem: Chest x-ray, supplemental oxygen, nebulizer therapy, pulse oximetry, noninvasive positive pressure ventilation as clinically indicated, pulmonary toilet, prone positioning while in bed. (2) Urinary tract infection Current Visit: Yes Status: Acute Qualifiers: Encounter type: initial encounter Plan to address problem: CBC, urinalysis, IV antibiotic therapy. (3) Obesity hypoventilation syndrome Current Visit: Yes Status: Acute Plan to address problem: Supplemental oxygen, pulse oximetry, increased physical activity at discharge. Noninvasive positive pressure ventilation as clinically indicated. (4) Bilateral pneumonia Current Visit: Yes Status: Acute Plan to address problem: Chest x-ray, IV antibiotic therapy, supplemental oxygen, nebulizer therapy, pulse oximetry, noninvasive positive pressure ventilation as clinically indicated. Arterial blood gas reviewed. (5) Suspected COVID-19 virus infection Current Visit: Yes Status: Acute Plan to address problem: COVID-19 protocol: Infectious disease service consulted, IV steroid therapy, coronavirus PCR positive, contact precautions, isolation precautions, prone positioning while in bed. Remdesivir Day 4 of 5 (6) positive stool for occult blood Mild drop in hemoglobin from 15 to around 12. No overt GI bleed noted. This may be secondary to hemorrhoids. Will recommend outpatient GI evaluation. DVT prophylaxis Current Visit: Yes Status: Acute Plan to address problem: SCD to bilateral lower extremities, prophylactic heparin. . Disposition: DC- TO HOME OR SELFCARE Exam - Constitutional Vitals: Temp Pulse Resp BP Pulse Ox 97.8 F 72 18 136/95 97 10/16/19 05:21 10/16/19 05:21 10/16/19 05:21 10/16/19 10:41 10/16/19 05:21 Plan Activity: advance as tolerated, fall precautions Diet: low fat Special Instructions: record daily weights, record daily BP diary Additional Instructions: must use mask and continue social distancing Follow up with: PRIMARY CARE, [Referring] - 3-5 Days FRANCIE REYNOLDS MD [Staff Physician] - 7 Days Prescriptions: Apixaban [Eliquis] 2.5 mg PO BID #30 tablet Prednisone [predniSONE 5 mg (6-Day Pack, 21 Tabs)] 5 mg PO .TAPER #1 tab.ds.pk
[2019-10-16] MEDS ORDERED: REMDESIVIR 100 MG in SODIUM CHLORIDE 0.9% 250ML 250 ML IV SCH (21:00)
[2019-10-16] MEDS ORDERED: SODIUM CHLORIDE 0.9% 50 ML IVPB IV SCH (21:00)
== END 2019-10-16 18:50 | disposition home or self-care (01) | DRG 177 ==
LOC: ED 12:48 → 3A 17:50
PROVIDERS: ADMIT Internal Medicine; ATTEND Internal Medicine
PROC: 4A033R1 Measurement of Arterial Saturation, Peripheral, Percutaneous Approach (ICD-10-PCS; principal; 2019-10-11)
DX: U07.1 COVID-19 (principal); J12.89 Other viral pneumonia; J96.01 Acute respiratory failure with hypoxia; N39.0 Urinary tract infection, site not specified; E66.2 Morbid (severe) obesity with alveolar hypoventilation; K92.1 Melena; I10 Essential (primary) hypertension; K21.9 Gastro-esophageal reflux disease without esophagitis; Z68.30 Body mass index [BMI] 30.0-30.9, adult; Z82.49 Family history of ischemic heart disease and other diseases of the circulatory system
CPT/HCPCS: 36415; 71045; 80048; 80053; 81001; 82140; 82270; 82550; 82553; 82728; 82803; 82947; 83615; 83735; 83880; 84145; 84439; 84443; 84484; 85014; 85018; 85025; 85379; 87040; 87086; 87641; 94760; G0378; J0456; J0696; J1644; J2405; J2920; J7030; J7050; U0003-CS